=== PATIENT | male | born 1995 ===

== ENCOUNTER 2018-01-05 11:00 | Day surgery (SDC) | payer SELFPAY ==
[2018-01-05] MEDS ORDERED: Propofol 10 mg/ml Inj (20 ML) ONE (13:55)
[2018-01-05] MEDS ORDERED: Midazolam 2 MG/2 ML VIAL ONE (13:55)
[2018-01-05] MEDS ORDERED: Lidocaine Hydrochloride 5 ML INJ ONE (13:57)
[2018-01-05] MEDS ORDERED: ceFAZolin 1 gm in NS 1 GM/100 ML BAG IVPB ONE (13:58)
[2018-01-05] MEDS ORDERED: Bupivacaine HCl 0.25% PF (30 ml) Inj ONE (13:58)
[2018-01-05] MEDS ORDERED: Oxycodone/Acetaminophen 5/325 mg Tab PO PRN (14:00)
[2018-01-05] MEDS ORDERED: Lactated Ringer's 1,000 ML IV ONE (15:15)
[2018-01-05] MEDS: HYDROmorphone 0.5 mg/0.5 ml ISec IVP PRN ×3 (15:30→16:15)
[2018-01-05] MEDS ORDERED: HYDROmorphone 0.5 mg/0.5 ml ISec ONE (15:30)
[2018-01-05] MEDS ORDERED: Lactated Ringer's 1,000 ML IV SCH (15:30)
[2018-01-05 16:57] VITALS: BP 120/81; PULSE 81; RESP 18; TEMP 98; O2SAT 100
--- NOTE | 2018-01-19 08:35 | OP ---
PROCEDURE DATE: 01/05/2018 PREOPERATIVE DIAGNOSIS: Right-sided testicular mass and concern for malignancy. POSTOPERATIVE DIAGNOSIS: Right-sided testicular mass, concern for malignancy, but frozen section did not show any evidence of malignancy. PROCEDURE PERFORMED: Right inguinal exploration, delivering the testicle, right mobile frozen section of the right epididymis, and evaluation and exam under anesthesia. ESTIMATED BLOOD LOSS: Less than 25 mL. COMPLICATIONS: There are no complications. At the termination of the procedure, we replaced the testicle intact. The patient still has the mass within his epididymis. We took a frozen section and we sent this to the pathologist. Their initial response is that it is inflammatory, not malignant. Further plans will follow, see below. SPECIMENS: The specimen sent out is frozen section from the testicle. DESCRIPTION OF PROCEDURE: After obtaining informed consent and discussing various options with the patient at great length with the patient's . In brief, he is a very pleasant young gentleman. He is here on a visa, his is in school and he presented to another urologist who sent him further evaluation. We discussed the possibility of him returning to [place], but he is concerned with his status as a student visa, etc., so after discussing the options, he is here now for the above procedure. All testicular parameters are negative. As would be expected, ____ normal. The patient was brought to the OR and placed on the OR table, routine monitoring, time-out was called to confirm the patient. We discussed with the patient the plan and we did exactly what we planned to do. An incision was made in the right inguinal area. We dissected down below, off the nerve and blood vessels in this sector through the underlying fat and fascia. Now, we identified the cord, which we delivered gently with a little pressure from below in case he had some underlying malignancy. At this point, I then placed a Taylor around the cord with double . Now we delivered the testicles gently, carefully, and slowly. ____. Further examination revealed the testicles to be completely within normal limits. The epididymis itself was extremely indurated. . It was difficult at this point to identify any specific obstruction. I do not see specifically the vas deferens well at this point, but it is indurated. No appreciable . At this point, I was interested in mostly making a diagnosis and not complete removal, not wanting to disrupt blood flow to the testicle. At this point, we took multiple pictures actually interestingly. We sent off the specimens to the pathologist on different portions. After doing so, we achieved hemostasis with a mild cautery and some suture material. The patient overall tolerated the procedure without any complications. We then inspected the scrotum actually reversing the inside. We did make sure there was no bleeding of the skin . We now replaced the testicle anatomically into the scrotum and we began our closure . We closed in layers both skin and dry sterile dressing, etc. The patient tolerated the procedure well without any complications. Yogesh Bermudez MD
--- NOTE | 2018-01-19 08:57 | HP ---
REASON FOR ADMISSION: Scrotal mass. HISTORY OF PRESENT ILLNESS: The patient is a very young gentleman ____. He presents with a painless growth in his right hemiscrotum. Further examination revealed that it is paratesticular. ____ reported by MRI enhancing and concerning for cancer. The patient has been brought in today actually for an exploration through the inguinal canal. With the plans for biopsy ____, by MRI criteria that the testicles are not involved. I did have a ____ conversation at great length ____ . I explained to the patient concerns for malignancy which is less concerning ____ testicular masses. I also spoke about other possibilities with the patient. It was not just the epididymitis but there is certainly a possibility ____ PAST MEDICAL AND SURGICAL HISTORY: As above. MEDICATIONS: See chart. ALLERGIES: NONE. REVIEW OF SYSTEMS: No weight loss, chest pain, or shortness of breath. ____. He still have complaints of coughing. No weight loss or chest pain. ____. We discussed the possibility of ____. We are concerned about traveling back and forth .. In terms of exposure to injections, the patient has known of any specific issues, no known history of . FAMILY HISTORY: There is no family history of malignancy. . From a development standpoint, per the patient's knowledge, patient had no prior urologic history. . PHYSICAL EXAMINATION: GENERAL: A well-nourished female in no apparent distress. VITAL SIGNS: Within normal limits. NECK: No cervical or axillary lymphadenopathy. ABDOMEN: Soft and nontender. : ____. His left hemiscrotum is . Appears to be highly involved It is not ____ to the skin. . DIAGNOSES: Right paratesticular mass that appears to be solid on an MRI concerning for malignancy. PLAN: I had a long discussion with the patient. I discussed the easiest thing is to remove the testicle and the cord structures . However, it does not seem that the testicle is involved and the purpose of testicular function sperm production. Even if the epididymis and vas deferens are somewhat . I explained this to the patient at length. Discussed all the options with the patient. we are going to control this intraoperatively. Once we achieved some event of what is going on, we will make further decisions . I explained that most likely we will not be able to surgery. Further evaluation as planned . Yogesh Bermudez MD
--- NOTE | 2018-01-19 09:00 | PN ---
DATE: 01/16/2018 This is a note to be placed in the chart. See the history and physical and the operative note . 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 I had a lengthy discussion with the pathologist. With this kind of granulomas, again there is a long differential list such as sarcoid or just fungal granulomas. tuberculosis. At this point, I discussed this with the patient will be placed in the chart even with the negative mycobacterium stain, there is still possibility for exacerbation to . In the interim, we will work on observation with CAT scan of the abdomen and pelvis to make sure there is no kidney involvement. The general urology thinking as for looking for a trigger is that isolated tuberculosis of a epididymis has to be seeded from elsewhere. In the interim, I have ordered a PPD, which was read as positive by Dr. Robert Corey. I have a negative chest x-ray. The implication from this needs to be evaluated. Again, since he is of [place] descent, I need to get further opinion from Infectious Disease and further management in terms of other possibilities for caseating granulomatous disease. At this point, the patient is doing well, but we will need further evaluation. There is no malignancy seen. We need to make further plans on evaluation. I just wanted a thoroughness, but the documentation of the plan is for the patient to see Infectious Disease for further testing. Meanwhile, I will obtain a CT scan of the abdomen and pelvis. He has a positive PPD and negative chest x-ray. 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 Yogesh Bermudez MD
== END 2018-01-05 17:46 | disposition home or self-care (01) ==
LOC: EDBD → C.SDS 11:00
PROVIDERS: ATTEND Urology
DX: N50.9 Disorder of male genital organs, unspecified (principal)
CPT/HCPCS: 54505; 87070; 88305; 88312; 88331; J0690; J1170; J2250; J2704; J3010; J7120

== ENCOUNTER 2018-04-02 07:44 | Day surgery (SDC) | payer SELFPAY ==
[2018-04-02] MEDS ORDERED: ceFAZolin 1 gm in NS 1 GM/100 ML BAG IVPB ONE (08:07)
[2018-04-02] MEDS ORDERED: cefTRIAXone IV 1 gm in Dextros 50 ML IVPB ONE (08:07)
[2018-04-02] MEDS ORDERED: Bacitracin Ointment 30 GM TUBE ONE (08:08)
[2018-04-02] MEDS ORDERED: Midazolam 2 MG/2 ML VIAL ONE (08:46)
[2018-04-02] MEDS ORDERED: Propofol 10 mg/ml Inj (20 ML) ONE (08:47)
[2018-04-02] MEDS ORDERED: Bupivacaine 0.25% 20 ML INJ IJ ONE (11:11)
[2018-04-02] MEDS ORDERED: HYDROmorphone 0.5 mg/0.5 ml ISec IVP PRN (11:37)
[2018-04-02] MEDS ORDERED: Acetaminophen-Codeine 300/30 mg Tab PO PRN (11:48)
[2018-04-02 12:02] VITALS: O2SAT 100
[2018-04-02 13:08] VITALS: BP 140/80; PULSE 82; RESP 18; TEMP 97
--- NOTE | 2018-04-15 16:59 | OP ---
Copied To: Yogesh Bermudez MD Attending MD: Yogesh Bermudez MD PROCEDURE DATE: 04/02/2018 PREOPERATIVE DIAGNOSES: Right testicular and epididymal mass. POSTOPERATIVE DIAGNOSES: Right testicular and epididymal mass. PROCEDURES: 1. Scrotal exploration, excision of biopsy of the tissue and cultures and specimen sent. 2. Revision of the abdominal wound scar and there were no complication. ESTIMATED BLOOD LOSS: Less than 10 mL. FINDINGS: 1. In terms of the abdominal groin incision, the medial edge is not healing well. 2. I cut open the edges. DESCRIPTION OF PROCEDURE: We have prepped the patient in sterile fashion and we decided to revive the edges and reapproximate them with fresh tissue. Regarding the scrotum, again the testicle is significantly abnormal. I found within the hemiscrotum, no other major abnormality at all. I do not really see much normal testicle tissue. Today I just biopsied. I sent cultures, we will evaluate report further, but my real suggestion after seeing this today is to remove it. I will be concerned that even if this correct diagnosis is tuberculosis that healing may be difficult through the multiple pictures. See my addendum at the end of this note, but my previous recommendations for the patient to consider complete orchiectomy. Today we have approached to the scrotum because we ensure it is not cancer, but I am concerned that the testicle is not going to heal well. He does have a normal left hemiscrotum and I am not going to remove it without permission, but my other recommendation despite the expense to consider very strongly sperm banking at least temporarily and then make further decision. DESCRIPTION OF PROCEDURE: After obtaining informed consent, the patient was placed on the table. Routine monitors were placed. Time-out was called to confirm the patient and positioning. We have explained to the patient the outline. So, incision was made in the right hemiscrotum. We delivered the testicle. We noted tremendous amount of abnormal tissue and in fact there is little normal tissue. Very difficult to distinguish the entire epididymis, but it is able to be and mostly focus on the mass like effect. We biopsied. We then cultured. Again prior to today, I have spoken to the labs to make arrangements, prior today we made arrangements. We had sent the culture for fungus, for tuberculosis in sterile containers with nothing and also to send the pathology to the lab, which we also did for tissues. So, we sent off many multiple specimens, which are labeled very carefully. At this point, we irrigated copiously because again it does look like abnormal whitish tissue. Multiple tissues were taken. The testicles looks mostly replaced. From previous dimension, I had done some reviews prior to today and over the last couple of months regarding TB of the testicle. Overall, at this point we closed the incision without difficulty. We again left the testicle in place intact. When I inspected the wound from the groin area, I noticed that the medial edge is not healing well. Though at this point, we decided to revise the wound. Once the patient got anesthesia, we tried to revive the wound. We excised the medial edge of the skin and sent it for pathology. We mostly to create fresh bleeding on the incision site and then we closed it using natural sutures with also superficial skin layer. We used mattress sutures with nylon. Overall, the patient tolerated this procedure well without complication. I do want to mention we provided lidocaine and Marcaine for both the groin and the skin. The patient was brought to the recovery room in stable condition and tolerated the procedure well without complications. Yogesh Bermudez MD
--- NOTE | 2018-04-15 18:33 | HP ---
Copied To: Yogesh Bermudez MD Attending MD: Yogesh Bermudez MD UROLOGY ADMISSION HISTORY AND PHYSICAL REASON FOR ADMISSION: For further diagnostic study for his potential tuberculosis. HISTORY OF PRESENT ILLNESS: Mr. Turner is a very pleasant gentleman. See the many previous notes, seen for above and he was seen in my office. He initially presented to me. He actually was referred from another urologist for a testicular mass. At that time, there was a question of cancer for the testicle. We did various diagnostic studies. We were able to do as much studies as we were able to do preoperatively, all the imaging, etc. Subsequently, we brought the patient to the OR. His concern is very much to preserve his testicle as best as possible. We have discussed initially just an orchiectomy. We had approached it as a possibility for cancer, and we approached it as a radical orchiectomy. What we really planned originally through the notes was an exploration and biopsy. Subsequently, the biopsies came back with caseating granulomas, see all those previous pathologies, and the question of whether this was sarcoid tuberculosis, this may be spontaneous. We have had multiple discussions. We have sent the patient for Infectious Disease consultation. At this point, the patient is now being brought in, so he is in, he is positive with his PPD, but his chest x-ray is negative. His blood test is pending. The issue is whether or not to keep subjecting this young gentleman to six months of antituberculosis medications versus the other possibility for treatment of other medical conditions. His background was suspicious for tuberculosis, but with a negative chest x-ray, we are in the middle of testing further. So today he is here for further testing. At this point, prior to today, I have discussed with the Microbiology Department as what else we can run testing like to confirm tuberculosis, antifungal, etc., and we are also sending more pathology tissue. So he is here today for further exploration. Today, we are going to go through the scrotum. Since we have essentially ruled out any malignancy, there is no pathology suggesting malignancy. There is no blood testing suggesting malignancy, and therefore, we are going to approach it through the scrotum. I have explained this all in great detail to the patient and his with multiple office visits. PAST MEDICAL HISTORY AND PAST SURGICAL HISTORY: As listed above. SOCIAL HISTORY: Essentially unremarkable. As mentioned he is from [place] His is also a student. REVIEW OF SYSTEMS: No weight loss, chest pain, or shortness of breath. He actually feels much better than we initially started. MEDICATIONS: See chart. ALLERGIES: NONE. Review of systems as listed above and noncontributory. PHYSICAL EXAMINATION: GENERAL: A well-nourished male, in no apparent distress. VITAL SIGNS: Within normal limits included in the chart. LUNGS: Clear. HEART: Normal S1, S2. ABDOMEN: Soft. EXTREMITIES: No axillary or cervical adenopathy. It turned out the inner corner of the incision is not healing well. See below. The left hemiscrotum is all within normal limits. The right hemiscrotum is significantly abnormal. It is firm. No loculations are noted. It is just significantly abnormal. It is hard to distinguish between the epididymis and the testicle itself. DIAGNOSES: 1. 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 2. Generalized tuberculosis of the body. 3. Possibilities for sarcoid. 4. Even fungal infection existing. IN SUMMARY: This is a very pleasant gentleman with the above history. Today's plan is to get as much tissue diagnosis also to send new cultures. However, most likely anyway he will be started on anti-TB meds that is being decided by Infectious Disease and also by the state. The patient is a [place], so we have to obtain these medications from the state. This has all been worked out, but we are going to bring him in today for further decision . Risks and benefits were discussed at length. I did discuss with them the possibilities, and my recommendation at this point is to consider just doing an orchiectomy and removing all the tissue, severely damaged testicle no matter what, and I also recommended very strongly to consider sperm banking, I know it is an extreme expense that may not be covered, but I certainly would consider it strongly. I have discussed all these options as well today for the OR and then obtaining more tissue. We will use the antibiotic prophylaxis. During the procedure itself when I inspected the wounds under more careful vision, the groin and the abdominal wound, I decided to operating report. Further plans will follow. Yogesh Bermudez MD [facility] # [id number]
== END 2018-04-02 14:21 | disposition home or self-care (01) ==
LOC: EDBD → C.SDS 07:44
PROVIDERS: ATTEND Urology
DX: N50.9 Disorder of male genital organs, unspecified (principal); A58 Granuloma inguinale; A18.4 Tuberculosis of skin and subcutaneous tissue
CPT/HCPCS: 54505; 87015; 87070; 87101; 87116; 87206; 88305; 88312; J0690; J1100; J2001; J2250; J2405; J2704; J3010; J7120

== ENCOUNTER 2018-04-07 20:14 | Inpatient (IN) | payer SELFPAY ==
--- NOTE | 2018-04-07 21:01 | C.PDOC ---
History Of Present Illness 23 year old male presents to the ED c/o fever and chills. Patient recently had suprapubic and scrotal biopsy to rule out TB because of granuloma formation. Patient denies nausea, vomit, diarrhea, dysuria, hematuria, penile discharge, weakness, numbness. Time Seen by Provider: 04/07/18 21:01 Chief Complaint (Nursing): Fever History Per: Patient History/Exam Limitations: no limitations Onset/Duration Of Symptoms: Days Current Symptoms Are (Timing): Still Present Associated Symptoms: Fever, Chills. denies: Vomiting Recent travel outside of the [place]: No Additional History Per: Patient Past Medical History Reviewed: Historical Data, Nursing Documentation, Vital Signs Vital Signs: Last Vital Signs Temp 98.8 F 04/07/18 20:47 Pulse 116 H 04/07/18 21:54 Resp 20 04/07/18 21:54 BP 128/82 04/07/18 21:54 Pulse Ox 100 04/07/18 22:55 - Medical History PMH: No Chronic Diseases Denies: Chronic Kidney Disease Surgical History: No Surg Hx Family History: States: Unknown Family Hx - Social History Hx Alcohol Use: Yes Hx Substance Use: No - Immunization History Hx Tetanus Toxoid Vaccination: No Hx Influenza Vaccination: No Hx Pneumococcal Vaccination: No Review Of Systems Constitutional: Negative for: Fever, Chills Cardiovascular: Negative for: Chest Pain, Palpitations Respiratory: Negative for: Cough, Shortness of Breath Gastrointestinal: Negative for: Nausea, Vomiting, Abdominal Pain Skin: Positive for: Other (abdominal and scrotal incision) Neurological: Negative for: Weakness, Numbness Physical Exam - Physical Exam Appears: Non-toxic, No Acute Distress Skin: Warm, Dry Head: Normacephalic Eye(s): bilateral: Normal Inspection Oral Mucosa: Moist Neck: Supple Chest: Symmetrical Cardiovascular: Rhythm Regular Respiratory: No Rales, No Rhonchi, No Wheezing Gastrointestinal/Abdominal: Soft, No Tenderness, No Guarding, No Rebound, Other (suprapubic incision with stitches with erythema, mild tenderness, drainage) Back: Normal Inspection Male Genital: Scrotal Swelling, Other (scroatl incision c&d, no exudates) Extremity: No Tenderness, No Swelling Extremity: Bilateral: Atraumatic, Normal Color And Temperature, Normal ROM Neurological/Psych: Oriented x3, Normal Speech Gait: Steady ED Course And Treatment - Laboratory Results Result Diagrams: 04/07/18 21:14 04/07/18 21:51 O2 Sat by Pulse Oximetry: 100 (ON RA) Pulse Ox Interpretation: Normal Progress Note: Plan: - VBG. - CT abd/pelvis. - Vancomycin IVPB. - Zosyn IVPB. - Blood culture. - UA. Spoke with dr Aidan Johnson, will come and see the pt in the ed. 11:[address] ibrahim(ID) ok with vanco and zosyn until cultues are back with sensitivities Disposition Discussed With Dr.: Abilio Mena Comment: accepted the pt on his service and took over the care at 10:51 PM Doctor Will See Patient In The: ED Counseled Patient/Family Regarding: Studies Performed, Diagnosis - Disposition Disposition: HOSPITALIZED Disposition Time: 21:01 Condition: FAIR - POA Present On Arrival: Surgical Site Infection - Clinical Impression Clinical Impression: Abdominal wall cellulitis, Abdominal pain - Scribe Statement The provider has reviewed the documentation as recorded by the Scribe Russel Cruz All medical record entries made by the Scribe were at my direction and personally dictated by me. I have reviewed the chart and agree that the record accurately reflects my personal performance of the history, physical exam, medical decision making, and the department course for this patient. I have also personally directed, reviewed, and agree with the discharge instructions and disposition. Decision To Admit - Pt Status Changed To: Hospital Disposition Of: Inpatient - Admit Certification Admit to Inpatient:: After my assessment, the patient will require hospitalization for at least two midnights. This is because of the severity of symptoms shown, intensity of services needed, and/or the medical risk in this patient being treated as an outpatient. - InPatient: Physician Admission Certification:: After my assessment, the patient will require hospitalization for at least two midnights. This is because of the severity of symptoms shown, intensity of services needed, and/or the medical risk in this patient being treated as an outpatient. - . Bed Request Type: Regular Admitting Physician: Abilio Mena Patient Diagnosis: Abdominal wall cellulitis, Abdominal pain
[2018-04-07] MEDS ORDERED: Piperacillin/Tazobact 3.375 gm 100 ML IVPB STA (21:11)
[2018-04-07] MEDS ORDERED: Vancomycin 1 GM 1 GM/250 ML BAG IVPB SCH (21:15)
[2018-04-07 21:16] LABS: VENOUS BLOOD GAS PCO2 53 mmHg (40-60); VENOUS BLOOD GAS PO2 26 mm/Hg (30-55); VENOUS BLOOD PH 7.33 (7.32-7.43)
[2018-04-07 21:23] LABS: BASO % 0.3 % (0.0-2.0); EOS # 0.2 K/uL (0.0-0.7); EOS % 1.8 % (0.0-4.0); HEMOGLOBIN 15.4 g/dL (12.0-18.0); LYMPH # 1.4 K/uL (1.0-4.3); LYMPH % 10.9 % (20.0-40.0); MEAN CORPUSCULAR HEMOGLOBIN 29.5 pg (27.0-31.0); MEAN CORPUSCULAR HGB CONC 33.9 g/dL (33.0-37.0); MEAN PLATELET VOLUME 7.1 fL (7.2-11.7); MONO % 7.4 % (0.0-10.0); NEUT # 10.4 K/uL (1.8-7.0); NEUT % 79.6 % (50.0-75.0); NRBC % 0.3 % (0.0-2.0); RBC 5.22 Mil/uL (4.40-5.90); RED CELL DISTRIBUTION WIDTH 12.3 % (11.5-14.5)
[2018-04-07 21:24] LABS: WHITE BLOOD COUNT 13.1 K/uL (4.8-10.8)
[2018-04-07] MEDS ORDERED: Piperacillin/Tazobact 3.375 gm 100 ML IVPB ONE (21:24)
[2018-04-07 21:32] LABS: URINE BILIRUBIN NEGATIVE (NEGATIVE); URINE BLOOD NEGATIVE (NEGATIVE); URINE CLARITY Clear (Clear); URINE COLOR Yellow (YELLOW); URINE GLUCOSE (UA) NORMAL (Normal); URINE LEUKOCYTE ESTERASE NEG Leu/uL (Negative); URINE PROTEIN NEGATIVE (NEGATIVE); URINE UROBILINOGEN NORMAL mg/dL (0.2-1.0)
[2018-04-07] MEDS ORDERED: Vancomycin 1 gm/NS 200 ml 1 GM/200 ML BAG IVPB ONE (22:00)
[2018-04-07 22:05] LABS: ALB/GLOB RATIO 1.3 (1.0-2.1); ALBUMIN 4.7 g/dL (3.5-5.0); ALT/SGPT 66 U/L (21-72); AST/SGOT 37 U/L (17-59); BLOOD UREA NITROGEN 5 mg/dL (9-20); CALCIUM 9.6 mg/dl (8.6-10.4); GFR AFRICAN-AMERICAN > 60; GFR NON-AFRICAN AMERICAN > 60
--- NOTE | 2018-04-08 00:18 | CP.PCM.HP ---
Addendum entered and electronically signed by Gómez Robert 04/08/18 00:45: Pertinent ROS to HPI: Patient denies night sweats, cough, hemoptysis nausea, vomiting, chest pain, palpitations, SOB, unintentional weight loss, change in appetite, penile discharge, urinary symptoms and hematuria. Original Note: <Gómez Robert - Last Filed: 04/08/18 00:34> History of Present Illness - History of Present Illness History of Present Illness: CC: Suprapubic drainage HPI: Patient is a 23 year old male with history of childhood asthma and right sided scrotal mass noted December 2017, who presents to the ED with complaint for noted suprapubic pus (cloudy white brownish) drainage this morning; s/p scrotal biopsy (04/02/18). Patient reported associated symptoms of subjective fever and mild chills. Patient states that he has been keeping his incision clean and dry as instructed as well as taking the antibiotics given to upon discharge on . Patient had his first scrotal biopsy on 01/05/18 with pathology result of paratesticular biopsy positive for necrotizing granulomas. Subsequently, patient was referred to ID, Dr. Fuentes for tuberculosis work-up; patient was placed on RIPE therapy for 30 days. As per patient, TB work-up has been negative up-to-date. In addition, patient had his second scrotal biopsy on 04/02, with pathology result negative acid fast mycobacteria and noted for scattered non-necrotizing granulomas. Code status: Full code Urology: Dr. Lupillo Bermudez ID: Dr. Fuentes PMHx:Childhood asthma and right sided scrotal mass PSHx: Right scrotal biopsy on 01/05/18 and 04/02/18 FHx: Denies Medications: Current prescription of cipro 500mg PO BID Allergies: NKDA Social Hx: Lives with , unemployed. Moved to the [facility] from [place] 3 years ago. Admits to 6 years of tobacco use (2-3 cigarettes per day), once per week ETOH use and denies any illicit drug use Present on Admission - Present on Admission Any Indicators Present on Admission: No Review of Systems - Constitutional Constitutional: Chills, Fever, Headache - EENT Eyes: absent: Blurred Vision, Change in Vision Ears: absent: Dizziness Nose/Mouth/Throat: absent: Nasal Congestion, Nasal Discharge - Cardiovascular Cardiovascular: absent: Chest Pain, Chest Pain at Rest, Diaphoresis, Dyspnea, Lightheadedness, Palpitations, Pedal Edema, Radiating Pain - Respiratory Respiratory: absent: Dyspnea - Gastrointestinal Gastrointestinal: absent: Abdominal Pain, Change in Bowel Habits, Constipation, Diarrhea, Nausea, Vomiting - Genitourinary Genitourinary: Hx /Renal Surgery. absent: Dysuria, Flank Pain, Hematuria, Pyuria, Urinary Frequency - Musculoskeletal Musculoskeletal: absent: Muscle Weakness, Myalgias, Numbness, Tingling - Integumentary Integumentary: absent: Rash - Endocrine Endocrine: absent: Fatigue, Palpitations Past Patient History - Past Medical History & Family History Past Medical History?: Yes - Past Social History Smoking Status: Light Smoker < 10 Cigarettes Daily - CARDIAC Hx Cardiac Disorders: No - PULMONARY Hx Respiratory Disorders: No - NEUROLOGICAL Hx Neurological Disorder: No - HEENT Hx HEENT Problems: No - RENAL Hx Chronic Kidney Disease: No - ENDOCRINE/METABOLIC Hx Endocrine Disorders: No - HEMATOLOGICAL/ONCOLOGICAL Hx Blood Disorders: No - INTEGUMENTARY Hx Dermatological Problems: No - MUSCULOSKELETAL/RHEUMATOLOGICAL Hx Musculoskeletal Disorders: No - GASTROINTESTINAL Hx Gastrointestinal Disorders: No - GENITOURINARY/GYNECOLOGICAL Hx Genitourinary Disorders: Yes Other/Comment: scrotal mass - PSYCHIATRIC Hx Substance Use: No - SURGICAL HISTORY Hx Surgeries: No - ANESTHESIA Hx Anesthesia: No Meds Allergies/Adverse Reactions: Allergies Allergy/AdvReac Type Severity Reaction Status Date / Time No Known Allergies Allergy Verified 04/07/18 20:52 Physical Exam - Constitutional Appears: No Acute Distress - Head Exam Head Exam: ATRAUMATIC, NORMAL INSPECTION - Eye Exam Eye Exam: EOMI, Normal appearance - ENT Exam ENT Exam: Mucous Membranes Dry - Respiratory Exam Respiratory Exam: Clear to Auscultation Bilateral, NORMAL BREATHING PATTERN. absent: Prolonged Expiratory Phase, Rhonchi, Wheezes, Respiratory Distress - Cardiovascular Exam Cardiovascular Exam: REGULAR RHYTHM, +S1, +S2. absent: Tachycardia, Diastolic murmur, Systolic Murmur - GI/Abdominal Exam GI & Abdominal Exam: Normal Bowel Sounds, Soft. absent: Diminished Bowel Sounds , Distended, Firm, Hyperactive Bowel Sounds, Tenderness Additional comments: Lower transverse ( suprapubic) incision, irrigated at bedside by Dr. Bermudez Dressing in clean and dry with iodine Incision is intact with very mild drainage, post bedside irrigation - Exam Additional comments: Right scrotal mass Dressing is clean and dry with iodine - Extremities Exam Extremities exam: Positive for: normal capillary refill, normal inspection, pedal pulses present. Negative for: calf tenderness, pedal edema, tenderness - Back Exam Back exam: absent: CVA tenderness (L), CVA tenderness (R) - Neurological Exam Neurological exam: Alert, CN II-XII Intact, Oriented x3 - Psychiatric Exam Psychiatric exam: Normal Affect - Skin Skin Exam: Normal Color Results - Vital Signs Recent Vital Signs: Last Vital Signs Temp 98.8 F 04/07/18 20:47 Pulse 116 H 04/07/18 21:54 Resp 20 04/07/18 21:54 BP 128/82 04/07/18 21:54 Pulse Ox 100 04/07/18 23:43 - Labs Result Diagrams: 04/07/18 21:14 04/07/18 21:51 Labs: Laboratory Results - last 24 hr 04/07/18 04/07/18 04/07/18 21:10 21:14 21:20 WBC 13.1 H D RBC 5.22 Hgb 15.4 Hct 45.4 MCV 87.0 MCH 29.5 MCHC 33.9 RDW 12.3 Plt Count 344 MPV 7.1 L Neut % (Auto) 79.6 H Lymph % (Auto) 10.9 L [place] % (Auto) 7.4 Eos % (Auto) 1.8 Baso % (Auto) 0.3 Neut # (Auto) 10.4 H Lymph # (Auto) 1.4 [place] # (Auto) 1.0 H Eos # (Auto) 0.2 Baso # (Auto) 0.0 pO2 26 L VBG pH 7.33 VBG pCO2 53 VBG HCO3 24.2 VBG Total CO2 29.5 H VBG O2 Sat (Calc) 54.7 VBG Base Excess 1.0 VBG Potassium 4.0 Sodium 139.0 Chloride 102.0 Glucose 88 Lactate 1.5 FiO2 21.0 Potassium Carbon Dioxide Anion Gap BUN Creatinine Est GFR ( Amer) Est GFR (Non-Af Amer) Random Glucose Calcium Total Bilirubin AST ALT Alkaline Phosphatase Total Protein Albumin Globulin Albumin/Globulin Ratio Venous Blood Potassium 4.0 Urine Color Yellow Urine Clarity Clear Urine pH 5.0 Ur Specific [place] 1.010 Urine Protein Negative Urine Glucose (UA) Normal Urine Ketones Negative Urine Blood Negative Urine Nitrate Negative Urine Bilirubin Negative Urine Urobilinogen Normal Ur Leukocyte Esterase Neg Urine WBC (Auto) < 1 Urine RBC (Auto) < 1 04/07/18 21:51 WBC RBC Hgb Hct MCV MCH MCHC RDW Plt Count MPV Neut % (Auto) Lymph % (Auto) [place] % (Auto) Eos % (Auto) Baso % (Auto) Neut # (Auto) Lymph # (Auto) [place] # (Auto) Eos # (Auto) Baso # (Auto) pO2 VBG pH VBG pCO2 VBG HCO3 VBG Total CO2 VBG O2 Sat (Calc) VBG Base Excess VBG Potassium Sodium 143 Chloride 100 Glucose Lactate FiO2 Potassium 4.3 Carbon Dioxide 28 Anion Gap 18 BUN 5 L Creatinine 0.6 L Est GFR ( Amer) > 60 Est GFR (Non-Af Amer) > 60 Random Glucose 98 Calcium 9.6 Total Bilirubin 0.6 AST 37 ALT 66 Alkaline Phosphatase 69 Total Protein 8.2 Albumin 4.7 Globulin 3.5 Albumin/Globulin Ratio 1.3 Venous Blood Potassium Urine Color Urine Clarity Urine pH Ur Specific [place] Urine Protein Urine Glucose (UA) Urine Ketones Urine Blood Urine Nitrate Urine Bilirubin Urine Urobilinogen Ur Leukocyte Esterase Urine WBC (Auto) Urine RBC (Auto) Assessment & Plan (1) Abdominal wall cellulitis Assessment and Plan: On admission: * Afebrile * WBC: 13.1 * ESR: WNL Consultation: * SANDRA, Dr. Fuentes Medication given in the ED and management: * Vanco 1gm IV once * Zosyn 3.375gm IV once * Will continue Vancomycin 1gm daily and Zosyn 3.375gm IV Q6H * Bedside irrigation by Dr. Lupillo Bermudez - F/u wound culture and blood culture Status: Acute (2) Mass of scrotum Assessment and Plan: Consultation: * Urology, Dr. Lupillo Bermudez -Management as per recommendation 1. First scrotal biopsy on 01/05/18 with pathology result of paratesticular bx noted for necrotizing granulomas 2. Second scrotal biopsy on 04/02/18, with pathology result noted for negative acid fast mycobacteria and scattered non-necrotizing granulomas. Status: Acute (3) Prophylactic measure Assessment and Plan: GI: Not indicated DVT: Scds Plans and management discussed with Dr. Mena Status: Acute <Abilio Mena - Last Filed: 04/08/18 06:19> Results - Vital Signs Recent Vital Signs: Last Vital Signs Temp 98.7 F 04/08/18 01:01 Pulse 100 H 04/08/18 01:01 Resp 20 04/08/18 01:01 BP 128/73 04/08/18 01:01 Pulse Ox 98 04/08/18 01:01 - Labs Result Diagrams: 04/07/18 21:14 04/07/18 21:51 Labs: Laboratory Results - last 24 hr 04/07/18 04/07/18 04/07/18 21:10 21:14 21:20 WBC 13.1 H D RBC 5.22 Hgb 15.4 Hct 45.4 MCV 87.0 MCH 29.5 MCHC 33.9 RDW 12.3 Plt Count 344 MPV 7.1 L Neut % (Auto) 79.6 H Lymph % (Auto) 10.9 L [place] % (Auto) 7.4 Eos % (Auto) 1.8 Baso % (Auto) 0.3 Neut # (Auto) 10.4 H Lymph # (Auto) 1.4 [place] # (Auto) 1.0 H Eos # (Auto) 0.2 Baso # (Auto) 0.0 pO2 26 L VBG pH 7.33 VBG pCO2 53 VBG HCO3 24.2 VBG Total CO2 29.5 H VBG O2 Sat (Calc) 54.7 VBG Base Excess 1.0 VBG Potassium 4.0 Sodium 139.0 Chloride 102.0 Glucose 88 Lactate 1.5 FiO2 21.0 Potassium Carbon Dioxide Anion Gap BUN Creatinine Est GFR ( Amer) Est GFR (Non-Af Amer) Random Glucose Calcium Total Bilirubin AST ALT Alkaline Phosphatase Total Protein Albumin Globulin Albumin/Globulin Ratio Venous Blood Potassium 4.0 Urine Color Yellow Urine Clarity Clear Urine pH 5.0 Ur Specific [place] 1.010 Urine Protein Negative Urine Glucose (UA) Normal Urine Ketones Negative Urine Blood Negative Urine Nitrate Negative Urine Bilirubin Negative Urine Urobilinogen Normal Ur Leukocyte Esterase Neg Urine WBC (Auto) < 1 Urine RBC (Auto) < 1 04/07/18 21:51 WBC RBC Hgb Hct MCV MCH MCHC RDW Plt Count MPV Neut % (Auto) Lymph % (Auto) [place] % (Auto) Eos % (Auto) Baso % (Auto) Neut # (Auto) Lymph # (Auto) [place] # (Auto) Eos # (Auto) Baso # (Auto) pO2 VBG pH VBG pCO2 VBG HCO3 VBG Total CO2 VBG O2 Sat (Calc) VBG Base Excess VBG Potassium Sodium 143 Chloride 100 Glucose Lactate FiO2 Potassium 4.3 Carbon Dioxide 28 Anion Gap 18 BUN 5 L Creatinine 0.6 L Est GFR ( Amer) > 60 Est GFR (Non-Af Amer) > 60 Random Glucose 98 Calcium 9.6 Total Bilirubin 0.6 AST 37 ALT 66 Alkaline Phosphatase 69 Total Protein 8.2 Albumin 4.7 Globulin 3.5 Albumin/Globulin Ratio 1.3 Venous Blood Potassium Urine Color Urine Clarity Urine pH Ur Specific [place] Urine Protein Urine Glucose (UA) Urine Ketones Urine Blood Urine Nitrate Urine Bilirubin Urine Urobilinogen Ur Leukocyte Esterase Urine WBC (Auto) Urine RBC (Auto) Assessment & Plan - Date & Time Date: 04/08/18 (I have seen and examined the patient. I agree with the findings and plan of care as documented by Dr. Robert. Patient with cellulitis and scrotal mass. Consult to Dr Bermudez and Dr. Fuentes. Kathrin and Theo for now. Monitor for acute changes.) Time: 06:18 Attending/Attestation - Attestation I have personally seen and examined this patient.: Yes I have fully participated in the care of the patient.: Yes I have reviewed all pertinent clinical information: Yes
[2018-04-08 01:01] VITALS: RESP 20
[2018-04-08] MEDS: Sodium Chloride 0.9% 1,000 ML IV SCH ×4 (01:06→22:05)
[2018-04-08] MEDS: Piperacill/Tazo 3.375gm in Dex 3.375 GM/50 ML BAG IVPB SCH ×4 (03:04→22:01)
--- NOTE | 2018-04-08 07:17 | CP.PCM.PN ---
Subjective - Date & Time of Evaluation Date of Evaluation: 04/08/18 Time of Evaluation: 08:10 - Subjective Subjective: Pt seen and examined at bedside. No complaints. Denies fevers, chest pain, SOB , abd pain, nausea, incision site pain. Objective - Vital Signs/Intake and Output Vital Signs (last 24 hours): Temp Pulse Resp BP Pulse Ox 98.7 F 100 H 20 128/73 98 04/08/18 01:01 04/08/18 01:01 04/08/18 01:01 04/08/18 01:01 04/08/18 01:01 Intake and Output: 04/08/18 04/08/18 06:59 18:59 Intake Total 940 Balance 940 - Medications Medications: Current Medications Piperacillin Sod/Tazobactam Sod (Zosyn 3.375 Gm Iv Premix) 3.375 gm in 50 mls @ 100 mls/hr IVPB Q6H NATALIIA PRN Reason: Protocol Last Admin: 04/08/18 03:04 Dose: 100 mls/hr Vancomycin/Sodium Chloride (Vancomycin 1 Gm/Ns 200 Ml) 1 gm in 200 mls @ 133.333 mls/hr IVPB Q24H NAATLIIA PRN Reason: Protocol Stop: 04/13/18 10:01 Sodium Chloride (Sodium Chloride 0.9%) 1,000 mls @ 100 mls/hr IV .Q10H [facility] Last Admin: 04/08/18 01:06 Dose: 100 mls/hr Pneumococcal Polyvalent Vaccine (Pneumovax 23 Vaccine) 0.5 ml IM .ONCE ONE Stop: 04/10/18 10:01 Saccharomyces Boulardii (Florastor) 250 mg PO BID NATALIIA - Labs Labs: 04/07/18 21:14 04/07/18 21:51 - Constitutional Appears: Well, Non-toxic - Head Exam Head Exam: ATRAUMATIC, NORMAL INSPECTION, NORMOCEPHALIC - Eye Exam Eye Exam: EOMI Pupil Exam: PERRL - ENT Exam ENT Exam: Mucous Membranes Moist - Respiratory Exam Respiratory Exam: Clear to Ausculation Bilateral, NORMAL BREATHING PATTERN - Cardiovascular Exam Cardiovascular Exam: REGULAR RHYTHM. absent: Murmur - GI/Abdominal Exam GI & Abdominal Exam: Soft, Normal Bowel Sounds. absent: Distended, Rigid, Mass Additional comments: Suprapubic incision site noted, approx 10cm in diameter. Non erythematous w/ no drainage seen. Packed w/ gauze Assessment and Plan - Assessment and Plan (Free Text) Assessment: 23 yo M admitted for purulent drainange/cellulitis from suprapubic bx incision ( 01/06/18)of testicular necrotizing granulomas 2/2 suspected TB infection. Pt Quantiferon +. Pt s/p I&D of incision site. 1. Cellulitis at incision site -zosyn 3.375 q6(04/07) -vanco 1g QD(04/07) -Florastar 250mg PO BID -f/u abd wound cx -wound care nursing to change dressings -Urology consult Dr. Heladio Bermudez. Performed bx (04/02), I&D(04/07). -ID consult Dr. Fuentes 2. 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 Fuentes -awaiting bx results for acid fast bacilli, bx (04/02) -ID consult Dr. Fuentes 3. Ppx -OOB -SCDs -GI ppx not indicated Dispo: -awaiting abd wound culture -continue IV Abx -pt advised to begin RIPE therapy -d/c home pending cx results Yaneth Ramirez PGY1
[2018-04-08 08:30] LABS: BASO % 0.4 % (0.0-2.0); EOS # 0.2 K/uL (0.0-0.7); EOS % 2.2 % (0.0-4.0); HEMOGLOBIN 15.3 g/dL (12.0-18.0); LYMPH # 1.5 K/uL (1.0-4.3); LYMPH % 15.9 % (20.0-40.0); MEAN CELL VOLUME 87.5 fL (80.0-94.0); MEAN CORPUSCULAR HEMOGLOBIN 30.9 pg (27.0-31.0); MEAN CORPUSCULAR HGB CONC 35.3 g/dL (33.0-37.0); MEAN PLATELET VOLUME 7.2 fL (7.2-11.7); MONO # 0.9 K/uL (0.0-0.8); MONO % 9.3 % (0.0-10.0); NEUT # 6.9 K/uL (1.8-7.0); NEUT % 72.2 % (50.0-75.0); NRBC % 0.1 % (0.0-2.0); RBC 4.95 Mil/uL (4.40-5.90); RED CELL DISTRIBUTION WIDTH 12.1 % (11.5-14.5); WHITE BLOOD COUNT 9.6 K/uL (4.8-10.8)
[2018-04-08 09:03] LABS: ALB/GLOB RATIO 1.6 (1.0-2.1); ALBUMIN 4.7 g/dL (3.5-5.0); ALT/SGPT 63 U/L (21-72); AST/SGOT 42 U/L (17-59); BLOOD UREA NITROGEN 6 mg/dL (9-20); CALCIUM 9.6 mg/dl (8.6-10.4); GFR AFRICAN-AMERICAN > 60; GFR NON-AFRICAN AMERICAN > 60
[2018-04-08] MEDS: Saccharomyces Boulardi 250 mg Cap PO SCH ×2 (09:49→17:01)
[2018-04-08] MEDS: Vancomycin 1 gm/NS 200 ml 1 GM/200 ML BAG IVPB SCH (10:36)
--- NOTE | 2018-04-08 14:38 | PCM.URO ---
Urology Progress Note - General General: Tolerating Diet - Subjective Flank Pain: No Nausea: No Vomiting: No Voiding Well: Yes Dysuria: No Hematuria: No [place]: Yes Dsypnea: No Chest Pain: No Fever & Chills: No - Objective Lab Results Last 24 Hours: Laboratory Results - last 24 hr 04/07/18 04/07/18 04/07/18 21:10 21:14 21:20 WBC 13.1 H D RBC 5.22 Hgb 15.4 Hct 45.4 MCV 87.0 MCH 29.5 MCHC 33.9 RDW 12.3 Plt Count 344 MPV 7.1 L Neut % (Auto) 79.6 H Lymph % (Auto) 10.9 L [place] % (Auto) 7.4 Eos % (Auto) 1.8 Baso % (Auto) 0.3 Neut # (Auto) 10.4 H Lymph # (Auto) 1.4 [place] # (Auto) 1.0 H Eos # (Auto) 0.2 Baso # (Auto) 0.0 pO2 26 L VBG pH 7.33 VBG pCO2 53 VBG HCO3 24.2 VBG Total CO2 29.5 H VBG O2 Sat (Calc) 54.7 VBG Base Excess 1.0 VBG Potassium 4.0 Sodium 139.0 Chloride 102.0 Glucose 88 Lactate 1.5 FiO2 21.0 Potassium Carbon Dioxide Anion Gap BUN Creatinine Est GFR ( Amer) Est GFR (Non-Af Amer) Random Glucose Calcium Phosphorus Magnesium Total Bilirubin AST ALT Alkaline Phosphatase Total Protein Albumin Globulin Albumin/Globulin Ratio Venous Blood Potassium 4.0 Urine Color Yellow Urine Clarity Clear Urine pH 5.0 Ur Specific [place] 1.010 Urine Protein Negative Urine Glucose (UA) Normal Urine Ketones Negative Urine Blood Negative Urine Nitrate Negative Urine Bilirubin Negative Urine Urobilinogen Normal Ur Leukocyte Esterase Neg Urine WBC (Auto) < 1 Urine RBC (Auto) < 1 04/07/18 04/08/18 04/08/18 21:51 08:19 08:19 WBC 9.6 RBC 4.95 Hgb 15.3 Hct 43.3 MCV 87.5 MCH 30.9 MCHC 35.3 RDW 12.1 Plt Count 315 MPV 7.2 Neut % (Auto) 72.2 Lymph % (Auto) 15.9 L [place] % (Auto) 9.3 Eos % (Auto) 2.2 Baso % (Auto) 0.4 Neut # (Auto) 6.9 Lymph # (Auto) 1.5 [place] # (Auto) 0.9 H Eos # (Auto) 0.2 Baso # (Auto) 0.0 pO2 VBG pH VBG pCO2 VBG HCO3 VBG Total CO2 VBG O2 Sat (Calc) VBG Base Excess VBG Potassium Sodium 143 140 Chloride 100 102 Glucose Lactate FiO2 Potassium 4.3 4.0 Carbon Dioxide 28 22 Anion Gap 18 21 H BUN 5 L 6 L Creatinine 0.6 L 0.5 L Est GFR ( Amer) > 60 > 60 Est GFR (Non-Af Amer) > 60 > 60 Random Glucose 98 102 Calcium 9.6 9.6 Phosphorus 4.7 H Magnesium 1.9 Total Bilirubin 0.6 0.9 AST 37 42 ALT 66 63 Alkaline Phosphatase 69 71 Total Protein 8.2 7.7 Albumin 4.7 4.7 Globulin 3.5 3.0 Albumin/Globulin Ratio 1.3 1.6 Venous Blood Potassium Urine Color Urine Clarity Urine pH Ur Specific [place] Urine Protein Urine Glucose (UA) Urine Ketones Urine Blood Urine Nitrate Urine Bilirubin Urine Urobilinogen Ur Leukocyte Esterase Urine WBC (Auto) Urine RBC (Auto) Intake & Output: Intake & Output 04/07/18 04/08/18 04/08/18 18:59 06:59 18:59 Intake Total 940 1050 Balance 940 1050 Weight 155 lb Intake: Intake, IV Amount 700 750 Right Antecubital 700 750 Oral 240 300 Other: # Voids Urine, Voided 2 3 # Bowel Movements 0 1 Vital Signs: Vital Signs - 24 hr 04/07/18 04/07/18 04/07/18 20:47 21:54 23:43 Temperature 98.8 F Pulse Rate 137 H 116 H Respiratory 22 20 Rate Blood Pressure 125/85 128/82 O2 Sat by Pulse 100 98 100 Oximetry 04/08/18 04/08/18 04/08/18 00:13 00:45 01:01 Temperature 99.2 F 98.7 F Pulse Rate 118 H 100 H Respiratory 20 18 20 Rate Blood Pressure 123/87 128/73 O2 Sat by Pulse 98 98 Oximetry 04/08/18 08:03 Temperature 98.4 F Pulse Rate 84 Respiratory 20 Rate Blood Pressure 111/71 O2 Sat by Pulse 96 Oximetry - Physical Exam Abdominal Exam: Soft, Non-Tender, Non-Distended Wound: Clean, Healing Well (mild purulent drainage Dressing changed, wound irrigated, and lightly packed) Back: No CVA Tenderness Genitalia: Without Inflammation - Plan Wound Care: Yes (wound care nurse) See Orders: Yes Additional Information: Imp: wound infection. stable overall. Discussed w pt and family. Antibiotic rx. Culture - Date & Time of Note Date: 04/08/18 Time: 14:38
--- NOTE | 2018-04-08 15:27 | CP.PCM.CON ---
History of Present Illness - History of Present Illness History of Present Illness: 23 year old male with history of childhood asthma and right sided scrotal mass noted December 2017, who presents to the ED with complaint for noted suprapubic pus (cloudy white brownish) drainage this morning; s/p scrotal biopsy (04/02/18) . Patient reported associated symptoms of subjective fever and mild chills. Patient states that he has been keeping his incision clean and dry as instructed as well as taking the antibiotics given to upon discharge on . Patient had his first scrotal biopsy on 01/05/18 with pathology result of paratesticular biopsy positive for necrotizing granulomas. RIPE rx never started as culture WAS RECOMMENDED SINCE FIRST SPECIMEN WAS NOT SUITABLE FOR CUULTURE PMHx:Childhood asthma and right sided scrotal mass PSHx: Right scrotal biopsy on 01/05/18 and 04/02/18 FHx: Denies Medications: Current prescription of cipro 500mg PO BID Allergies: NKDA Social Hx: Lives with , unemployed. Moved to the [facility] from [place] 3 years ago. Admits to 6 years of tobacco use (2-3 cigarettes per day), once per week ETOH use and denies any illicit drug use Present on Admission - Present on Admission Any Indicators Present on Admission: No Review of Systems - Constitutional Constitutional: Chills, Fever, Headache - EENT Eyes: absent: Blurred Vision, Change in Vision Ears: absent: Dizziness Nose/Mouth/Throat: absent: Nasal Congestion, Nasal Discharge - Cardiovascular Cardiovascular: absent: Chest Pain, Chest Pain at Rest, Diaphoresis, Dyspnea, Lightheadedness, Palpitations, Pedal Edema, Radiating Pain - Respiratory Respiratory: absent: Dyspnea - Gastrointestinal Gastrointestinal: absent: Abdominal Pain, Change in Bowel Habits, Constipation, Diarrhea, Nausea, Vomiting - Genitourinary Genitourinary: Hx /Renal Surgery. absent: Dysuria, Flank Pain, Hematuria, Pyuria, Urinary Frequency - Musculoskeletal Musculoskeletal: absent: Muscle Weakness, Myalgias, Numbness, Tingling - Integumentary Integumentary: absent: Rash - Endocrine Endocrine: absent: Fatigue, Palpitations Past Patient History - Past Medical History & Family History Past Medical History?: Yes - Past Social History Smoking Status: Light Smoker < 10 Cigarettes Daily - CARDIAC Hx Cardiac Disorders: No - PULMONARY Hx Respiratory Disorders: No Hx Asthma: Yes (childhood) - NEUROLOGICAL Hx Neurological Disorder: No - HEENT Hx HEENT Problems: No - RENAL Hx Chronic Kidney Disease: No - ENDOCRINE/METABOLIC Hx Endocrine Disorders: No - HEMATOLOGICAL/ONCOLOGICAL Hx Blood Disorders: No Hx Blood Transfusions: No - INTEGUMENTARY Hx Dermatological Problems: No - MUSCULOSKELETAL/RHEUMATOLOGICAL Hx Falls: No - GASTROINTESTINAL Hx Gastrointestinal Disorders: No Other/Comment: rt.scrotal biopsy - GENITOURINARY/GYNECOLOGICAL Hx Genitourinary Disorders: Yes Other/Comment: scrotal mass - PSYCHIATRIC Hx Substance Use: No - SURGICAL HISTORY Hx Surgeries: No - ANESTHESIA Hx Anesthesia: Yes Hx Anesthesia Reactions: No Hx Malignant Hyperthermia: No Has any member of the family had a problem w/ anesthesia?: No Meds Allergies/Adverse Reactions: Allergies Allergy/AdvReac Type Severity Reaction Status Date / Time No Known Allergies Allergy Verified 04/07/18 20:52 - Medications Medications: Current Medications Piperacillin Sod/Tazobactam Sod (Zosyn 3.375 Gm Iv Premix) 3.375 gm in 50 mls @ 100 mls/hr IVPB Q6H NATALIIA PRN Reason: Protocol Last Admin: 04/08/18 09:49 Dose: 100 mls/hr Vancomycin/Sodium Chloride (Vancomycin 1 Gm/Ns 200 Ml) 1 gm in 200 mls @ 133.333 mls/hr IVPB Q24H NATALIIA PRN Reason: Protocol Stop: 04/13/18 10:01 Last Admin: 04/08/18 10:36 Dose: 133.333 mls/hr Sodium Chloride (Sodium Chloride 0.9%) 1,000 mls @ 100 mls/hr IV .Q10H [facility] Last Admin: 04/08/18 14:49 Dose: 100 mls/hr Pneumococcal Polyvalent Vaccine (Pneumovax 23 Vaccine) 0.5 ml IM .ONCE ONE Stop: 04/10/18 10:01 Saccharomyces Boulardii (Florastor) 250 mg PO BID [facility] Last Admin: 04/08/18 09:49 Dose: 250 mg Physical Exam - Constitutional Appears: Chronically Ill - Head Exam Head Exam: ATRAUMATIC - Eye Exam Eye Exam: absent: Scleral icterus - ENT Exam ENT Exam: Mucous Membranes Dry - Neck Exam Neck exam: Negative for: Lymphadenopathy - Respiratory Exam Respiratory Exam: Decreased Breath Sounds - Cardiovascular Exam Cardiovascular Exam: REGULAR RHYTHM - GI/Abdominal Exam GI & Abdominal Exam: Diminished Bowel Sounds - Rectal Exam Rectal Exam: Deferred - Exam Exam: NORMAL INSPECTION - Extremities Exam Extremities exam: Negative for: tenderness - Back Exam Back exam: absent: CVA tenderness (L), CVA tenderness (R) - Neurological Exam Neurological exam: Alert, CN II-XII Intact, Oriented x3, Reflexes Normal - Psychiatric Exam Psychiatric exam: Normal Mood Results - Vital Signs Recent Vital Signs: Last Vital Signs Temp 98.4 F 04/08/18 08:03 Pulse 84 04/08/18 08:03 Resp 20 04/08/18 08:03 BP 111/71 04/08/18 08:03 Pulse Ox 96 04/08/18 08:03 - Labs Result Diagrams: 04/08/18 08:19 04/08/18 08:19 Labs: Laboratory Results - last 24 hr 04/07/18 04/07/18 04/07/18 21:10 21:14 21:20 WBC 13.1 H D RBC 5.22 Hgb 15.4 Hct 45.4 MCV 87.0 MCH 29.5 MCHC 33.9 RDW 12.3 Plt Count 344 MPV 7.1 L Neut % (Auto) 79.6 H Lymph % (Auto) 10.9 L [place] % (Auto) 7.4 Eos % (Auto) 1.8 Baso % (Auto) 0.3 Neut # (Auto) 10.4 H Lymph # (Auto) 1.4 [place] # (Auto) 1.0 H Eos # (Auto) 0.2 Baso # (Auto) 0.0 pO2 26 L VBG pH 7.33 VBG pCO2 53 VBG HCO3 24.2 VBG Total CO2 29.5 H VBG O2 Sat (Calc) 54.7 VBG Base Excess 1.0 VBG Potassium 4.0 Sodium 139.0 Chloride 102.0 Glucose 88 Lactate 1.5 FiO2 21.0 Potassium Carbon Dioxide Anion Gap BUN Creatinine Est GFR ( Amer) Est GFR (Non-Af Amer) Random Glucose Calcium Phosphorus Magnesium Total Bilirubin AST ALT Alkaline Phosphatase Total Protein Albumin Globulin Albumin/Globulin Ratio Venous Blood Potassium 4.0 Urine Color Yellow Urine Clarity Clear Urine pH 5.0 Ur Specific [place] 1.010 Urine Protein Negative Urine Glucose (UA) Normal Urine Ketones Negative Urine Blood Negative Urine Nitrate Negative Urine Bilirubin Negative Urine Urobilinogen Normal Ur Leukocyte Esterase Neg Urine WBC (Auto) < 1 Urine RBC (Auto) < 1 04/07/18 04/08/18 04/08/18 21:51 08:19 08:19 WBC 9.6 RBC 4.95 Hgb 15.3 Hct 43.3 MCV 87.5 MCH 30.9 MCHC 35.3 RDW 12.1 Plt Count 315 MPV 7.2 Neut % (Auto) 72.2 Lymph % (Auto) 15.9 L [place] % (Auto) 9.3 Eos % (Auto) 2.2 Baso % (Auto) 0.4 Neut # (Auto) 6.9 Lymph # (Auto) 1.5 [place] # (Auto) 0.9 H Eos # (Auto) 0.2 Baso # (Auto) 0.0 pO2 VBG pH VBG pCO2 VBG HCO3 VBG Total CO2 VBG O2 Sat (Calc) VBG Base Excess VBG Potassium Sodium 143 140 Chloride 100 102 Glucose Lactate FiO2 Potassium 4.3 4.0 Carbon Dioxide 28 22 Anion Gap 18 21 H BUN 5 L 6 L Creatinine 0.6 L 0.5 L Est GFR ( Amer) > 60 > 60 Est GFR (Non-Af Amer) > 60 > 60 Random Glucose 98 102 Calcium 9.6 9.6 Phosphorus 4.7 H Magnesium 1.9 Total Bilirubin 0.6 0.9 AST 37 42 ALT 66 63 Alkaline Phosphatase 69 71 Total Protein 8.2 7.7 Albumin 4.7 4.7 Globulin 3.5 3.0 Albumin/Globulin Ratio 1.3 1.6 Venous Blood Potassium Urine Color Urine Clarity Urine pH Ur Specific [place] Urine Protein Urine Glucose (UA) Urine Ketones Urine Blood Urine Nitrate Urine Bilirubin Urine Urobilinogen Ur Leukocyte Esterase Urine WBC (Auto) Urine RBC (Auto) Assessment & Plan (1) Abdominal wall cellulitis Status: Acute (2) Mass of scrotum Status: Acute - Assessment and Plan (Free Text) Assessment: NECROTIZING GRANULOMA FROM TESTICULAR MASS IN A 23 YO BAHRAIN[place] MALE WITH + tb QUANTIFERON CULTURE SENT FROM OR RECC TO START RIPE RX AWAIT ABD WALL CULTURE CONT IV ANTIBIOTICS FOR NOW
[2018-04-09] MEDS: Sodium Chloride 0.9% 1,000 ML IV SCH ×3 (02:15→16:40)
[2018-04-09] MEDS: Piperacill/Tazo 3.375gm in Dex 3.375 GM/50 ML BAG IVPB SCH ×4 (04:08→21:36)
--- NOTE | 2018-04-09 06:20 | CP.PCM.PN ---
Subjective - Date & Time of Evaluation Date of Evaluation: 04/09/18 Time of Evaluation: 07:20 - Subjective Subjective: Patient seen and examined at bedside. Patient in no acute distress, no acute events over night. Patient complains of mild abdominal pain with flexion as well gas discomfort. Patient denies no fever or chills, chest pain, palpitations , shortness of breath, nausea, constipation, diarrhea. Objective - Vital Signs/Intake and Output Vital Signs (last 24 hours): Temp Pulse Resp BP Pulse Ox 97.6 F 72 20 108/62 98 04/08/18 23:18 04/08/18 23:18 04/08/18 23:18 04/08/18 23:18 04/08/18 23:18 Intake and Output: 04/08/18 04/09/18 18:59 06:59 Intake Total 1050 1100 Balance 1050 1100 - Medications Medications: Current Medications Piperacillin Sod/Tazobactam Sod (Zosyn 3.375 Gm Iv Premix) 3.375 gm in 50 mls @ 100 mls/hr IVPB Q6H NATALIIA PRN Reason: Protocol Last Admin: 04/09/18 04:08 Dose: 100 mls/hr Vancomycin/Sodium Chloride (Vancomycin 1 Gm/Ns 200 Ml) 1 gm in 200 mls @ 133.333 mls/hr IVPB Q24H NATALIIA PRN Reason: Protocol Stop: 04/13/18 10:01 Last Admin: 04/08/18 10:36 Dose: 133.333 mls/hr Sodium Chloride (Sodium Chloride 0.9%) 1,000 mls @ 100 mls/hr IV .Q10H [facility] Last Admin: 04/09/18 02:15 Dose: 100 mls/hr Pneumococcal Polyvalent Vaccine (Pneumovax 23 Vaccine) 0.5 ml IM .ONCE ONE Stop: 04/10/18 10:01 Saccharomyces Boulardii (Florastor) 250 mg PO BID [facility] Last Admin: 04/08/18 17:01 Dose: 250 mg - Labs Labs: 04/08/18 08:19 04/08/18 08:19 - Constitutional Appears: Well, No Acute Distress - Head Exam Head Exam: NORMAL INSPECTION - Eye Exam Eye Exam: EOMI, Normal appearance. absent: Conjunctival injection - ENT Exam ENT Exam: Mucous Membranes Moist, Normal Exam - Respiratory Exam Respiratory Exam: Clear to Ausculation Bilateral, NORMAL BREATHING PATTERN. absent: Rales, Rhonchi, Wheezes, Stridor - Cardiovascular Exam Cardiovascular Exam: REGULAR RHYTHM, +S1, +S2. absent: Tachycardia - GI/Abdominal Exam GI & Abdominal Exam: Soft, Normal Bowel Sounds. absent: Distended Additional comments: 10cm suprapubic incision noted, dressed with gauze and tape. Incision draining purulent serosanguinous fluid, with gauze packing. No erythema noted. - Extremities Exam Extremities Exam: Normal Capillary Refill, Normal Inspection. absent: Calf Tenderness, Pedal Edema - Neurological Exam Neurological Exam: Alert, Awake, Oriented x3 - Skin Skin Exam: Normal Color. absent: Erythema Assessment and Plan - Assessment and Plan (Free Text) Assessment: 23 yo M admitted for purulent drainange/cellulitis from suprapubic bx incision ( 01/06/18)of testicular necrotizing granulomas 2/2 suspected TB infection. Pt Quantiferon +. Pt s/p I&D of incision site. 1. Cellulitis at incision site -zosyn 3.375 q6(04/07) -vanco 1g QD(04/07) -Florastor 250mg PO BID -f/u abd wound cx -incision site culture + for coagulase (-) staph -wound care nursing to change dressings -CT abdomen and pelvis, negative for any discrete fluid collection -Urology consult Dr. Heladio Bermudez. Performed bx (04/02), I&D(04/07). -ID consult Dr. uFentes 2. 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 Fuentes -Rifampin 600 PO daily (04/09) -Isoniazid 300mg PO daily (04/09) -Pyrazinamide 1500mg PO daily (04/09) -Ethambutol 1200mg PO daily (04/09) -Vitamin B6 50mg PO daily -awaiting bx results for acid fast bacilli, bx (04/02) -ID consult Dr. Fuentes 3. Ppx -OOB -SCDs -GI ppx not indicated Dispo: -awaiting abd wound culture -continue IV Abx -d/c home pending cx results Yaneth Ramirez PGY1
[2018-04-09 07:47] LABS: BASO % 0.8 % (0.0-2.0); EOS # 0.3 K/uL (0.0-0.7); EOS % 5.2 % (0.0-4.0); HEMOGLOBIN 14.8 g/dL (12.0-18.0); LYMPH # 1.8 K/uL (1.0-4.3); LYMPH % 28.4 % (20.0-40.0); MEAN CORPUSCULAR HEMOGLOBIN 30.7 pg (27.0-31.0); MEAN CORPUSCULAR HGB CONC 34.8 g/dL (33.0-37.0); MEAN PLATELET VOLUME 7.2 fL (7.2-11.7); MONO # 0.7 K/uL (0.0-0.8); MONO % 11.2 % (0.0-10.0); NEUT # 3.4 K/uL (1.8-7.0); NEUT % 54.4 % (50.0-75.0); RBC 4.83 Mil/uL (4.40-5.90); RED CELL DISTRIBUTION WIDTH 12.1 % (11.5-14.5); WHITE BLOOD COUNT 6.3 K/uL (4.8-10.8)
[2018-04-09 08:11] LABS: ALB/GLOB RATIO 1.4 (1.0-2.1); ALBUMIN 4.5 g/dL (3.5-5.0); ALT/SGPT 70 U/L (21-72); AST/SGOT 54 U/L (17-59); BLOOD UREA NITROGEN 5 mg/dL (9-20); CALCIUM 9.7 mg/dl (8.6-10.4); GFR AFRICAN-AMERICAN > 60; GFR NON-AFRICAN AMERICAN > 60
[2018-04-09] MEDS: Saccharomyces Boulardi 250 mg Cap PO SCH ×2 (10:40→17:08)
[2018-04-09] MEDS: Vancomycin 1 gm/NS 200 ml 1 GM/200 ML BAG IVPB SCH (10:40)
[2018-04-09] MEDS ORDERED: Simethicone 80 mg Chewtab PO ONE (11:11)
[2018-04-09] MEDS ORDERED: Iohexol 240 (50 ml) PO ONE (12:45)
--- NOTE | 2018-04-09 14:57 | CT ---
Date of service: 04/09/2018 PROCEDURE: CT Abdomen and Pelvis without intravenous contrast HISTORY: r/o suprabubic abscess COMPARISON: 01/16/2018 TECHNIQUE: Technique. Contrast dose: Radiation dose: Total exam DLP = mGy-cm. This CT exam was performed using one or more of the following dose reduction techniques: Automated exposure control, adjustment of the mA and/or kV according to patient size, and/or use of iterative reconstruction technique. FINDINGS: LOWER THORAX: Unremarkable. LIVER: Unremarkable. No gross lesion or ductal dilatation. GALLBLADDER AND BILE DUCTS: Unremarkable. PANCREAS: Unremarkable. No gross lesion or ductal dilatation. SPLEEN: Unremarkable. ADRENALS: Unremarkable. No mass. KIDNEYS AND URETERS: Unremarkable. No hydronephrosis. No solid mass. VASCULATURE: Unremarkable. No aortic aneurysm. BOWEL: Unremarkable. No obstruction. No gross mural thickening. APPENDIX: Unremarkable. Normal appendix. PERITONEUM: Unremarkable. No free fluid. No free air. LYMPH NODES: Unremarkable. No enlarged lymph nodes. BLADDER: Unremarkable. REPRODUCTIVE: Unremarkable. BONES: No acute fracture. OTHER FINDINGS: There is an open wound in the right suprapubic region with an air tract extending inferiorly. There is infiltration in the right super inguinal subcutaneous fat extending inferiorly, however, no discernible discrete fluid collection or abscess is observed. Consider further assessment with targeted ultrasound to discern a drainable fluid collection. IMPRESSION: Open wound in the right suprapubic region with an air tract extending inferiorly. There is infiltration in the right super inguinal subcutaneous fat extending inferiorly, however, no discernible discrete fluid collection or abscess is observed. Consider further assessment with targeted ultrasound to discern a drainable fluid collection.
--- NOTE | 2018-04-09 17:08 | CP.PCM.PN ---
Subjective - Date & Time of Evaluation Date of Evaluation: 04/09/18 Time of Evaluation: 07:00 - Subjective Subjective: IV rx in progress tolerating well aFB neg thus far Objective - Vital Signs/Intake and Output Vital Signs (last 24 hours): Temp Pulse Resp BP Pulse Ox 97.7 F 72 20 119/84 98 04/09/18 16:42 04/09/18 16:42 04/09/18 16:42 04/09/18 16:42 04/09/18 16:42 Intake and Output: 04/09/18 04/09/18 06:59 18:59 Intake Total 1100 2090 Balance 1100 2090 - Medications Medications: Current Medications Ethambutol HCl (Myambutol) 1,200 mg PO DAILY NATALIIA PRN Reason: Protocol Last Admin: 04/09/18 14:55 Dose: 1,200 mg Piperacillin Sod/Tazobactam Sod (Zosyn 3.375 Gm Iv Premix) 3.375 gm in 50 mls @ 100 mls/hr IVPB Q6H NATALIIA PRN Reason: Protocol Last Admin: 04/09/18 09:28 Dose: 100 mls/hr Vancomycin/Sodium Chloride (Vancomycin 1 Gm/Ns 200 Ml) 1 gm in 200 mls @ 133.333 mls/hr IVPB Q24H NATALIIA PRN Reason: Protocol Stop: 04/13/18 10:01 Last Admin: 04/09/18 10:40 Dose: 133.333 mls/hr Sodium Chloride (Sodium Chloride 0.9%) 1,000 mls @ 100 mls/hr IV .Q10H NATALIIA Last Admin: 04/09/18 02:15 Dose: 100 mls/hr Isoniazid (Niazid) 300 mg PO DAILY NATALIIA PRN Reason: Protocol Last Admin: 04/09/18 14:56 Dose: 300 mg Pneumococcal Polyvalent Vaccine (Pneumovax 23 Vaccine) 0.5 ml IM .ONCE ONE Stop: 04/10/18 10:01 Pyrazinamide (Pyrazinamide) 1,500 mg PO DAILY NATALIIA PRN Reason: Protocol Last Admin: 04/09/18 14:55 Dose: 1,500 mg Pyridoxine HCl (Vitamin B6 50 Mg Tab) 50 mg PO DAILY NATALIIA Last Admin: 04/09/18 14:56 Dose: 50 mg Rifampin (Rifampin Cap) 600 mg PO DAILY NATALIIA PRN Reason: Protocol Last Admin: 04/09/18 14:57 Dose: 600 mg Saccharomyces Boulardii (Florastor) 250 mg PO BID [facility] Last Admin: 04/09/18 10:40 Dose: 250 mg - Labs Labs: 04/09/18 07:37 04/09/18 07:37 - Constitutional Appears: Non-toxic, Chronically Ill - Head Exam Head Exam: NORMOCEPHALIC - Eye Exam Eye Exam: PERRL - ENT Exam ENT Exam: Mucous Membranes Dry - Neck Exam Neck Exam: absent: Lymphadenopathy - Respiratory Exam Respiratory Exam: Decreased Breath Sounds - Cardiovascular Exam Cardiovascular Exam: REGULAR RHYTHM - GI/Abdominal Exam GI & Abdominal Exam: Distended - Rectal Exam Rectal Exam: Deferred - Exam Exam: NORMAL INSPECTION Assessment and Plan (1) Abdominal wall cellulitis Status: Acute (2) Mass of scrotum Status: Acute
[2018-04-10] MEDS: Sodium Chloride 0.9% 1,000 ML IV SCH ×5 (02:45→22:16)
[2018-04-10] MEDS: Piperacill/Tazo 3.375gm in Dex 3.375 GM/50 ML BAG IVPB SCH ×4 (03:33→21:27)
[2018-04-10 07:23] LABS: BASO # 0.1 K/uL (0.0-0.2); EOS # 0.3 K/uL (0.0-0.7); EOS % 4.5 % (0.0-4.0); HEMOGLOBIN 14.6 g/dL (12.0-18.0); LYMPH # 1.7 K/uL (1.0-4.3); LYMPH % 24.2 % (20.0-40.0); MEAN CELL VOLUME 87.5 fL (80.0-94.0); MEAN CORPUSCULAR HEMOGLOBIN 30.3 pg (27.0-31.0); MEAN CORPUSCULAR HGB CONC 34.6 g/dL (33.0-37.0); MEAN PLATELET VOLUME 7.1 fL (7.2-11.7); MONO # 0.7 K/uL (0.0-0.8); MONO % 10.7 % (0.0-10.0); NEUT # 4.1 K/uL (1.8-7.0); NEUT % 59.6 % (50.0-75.0); NRBC % 0.1 % (0.0-2.0); RBC 4.81 Mil/uL (4.40-5.90); WHITE BLOOD COUNT 6.8 K/uL (4.8-10.8)
[2018-04-10 07:40] LABS: ALB/GLOB RATIO 1.4 (1.0-2.1); ALBUMIN 4.5 g/dL (3.5-5.0); ALT/SGPT 61 U/L (21-72); AST/SGOT 42 U/L (17-59); BLOOD UREA NITROGEN 6 mg/dL (9-20); CALCIUM 9.7 mg/dl (8.6-10.4)
[2018-04-10 07:50] LABS: GFR AFRICAN-AMERICAN > 60; GFR NON-AFRICAN AMERICAN > 60
[2018-04-10] MEDS: Saccharomyces Boulardi 250 mg Cap PO SCH ×2 (09:57→16:59)
[2018-04-10] MEDS ORDERED: Pneumococcal 23-Valent Vaccine IM ONE (10:00)
[2018-04-10] MEDS: Vancomycin 1 gm/NS 200 ml 1 GM/200 ML BAG IVPB SCH (10:45)
--- NOTE | 2018-04-10 13:19 | CP.PCM.PN ---
Subjective - Date & Time of Evaluation Date of Evaluation: 04/10/18 Time of Evaluation: 08:00 - Subjective Subjective: discussed on rounds for possible d/c on PO TB meds cultures will take 6 weeks Objective - Vital Signs/Intake and Output Vital Signs (last 24 hours): Temp Pulse Resp BP Pulse Ox 97.8 F 60 20 117/81 96 04/10/18 07:41 04/10/18 07:41 04/10/18 07:41 04/10/18 07:41 04/10/18 07:41 Intake and Output: 04/10/18 04/10/18 06:59 18:59 Intake Total 1900 Balance 1900 - Medications Medications: Current Medications Ethambutol HCl (Myambutol) 1,200 mg PO DAILY [facility] PRN Reason: Protocol Last Admin: 04/10/18 09:58 Dose: 1,200 mg Piperacillin Sod/Tazobactam Sod (Zosyn 3.375 Gm Iv Premix) 3.375 gm in 50 mls @ 100 mls/hr IVPB Q6H [facility] PRN Reason: Protocol Last Admin: 04/10/18 09:59 Dose: 100 mls/hr Vancomycin/Sodium Chloride (Vancomycin 1 Gm/Ns 200 Ml) 1 gm in 200 mls @ 133.333 mls/hr IVPB Q24H [facility] PRN Reason: Protocol Stop: 04/13/18 10:01 Last Admin: 04/10/18 10:45 Dose: 133.333 mls/hr Sodium Chloride (Sodium Chloride 0.9%) 1,000 mls @ 100 mls/hr IV .Q10H [facility] Last Admin: 04/10/18 12:57 Dose: Not Given Isoniazid (Niazid) 300 mg PO DAILY [facility] PRN Reason: Protocol Last Admin: 04/10/18 09:58 Dose: 300 mg Pyrazinamide (Pyrazinamide) 1,500 mg PO DAILY [facility] PRN Reason: Protocol Last Admin: 04/10/18 09:58 Dose: 1,500 mg Pyridoxine HCl (Vitamin B6 50 Mg Tab) 50 mg PO DAILY [facility] Last Admin: 04/10/18 09:58 Dose: 50 mg Rifampin (Rifampin Cap) 600 mg PO DAILY [facility] PRN Reason: Protocol Last Admin: 04/10/18 09:57 Dose: 600 mg Saccharomyces Boulardii (Florastor) 250 mg PO BID [facility] Last Admin: 04/10/18 09:57 Dose: 250 mg - Labs Labs: 04/10/18 07:09 04/10/18 07:09 - Constitutional Appears: Non-toxic, Chronically Ill - Head Exam Head Exam: NORMOCEPHALIC - Eye Exam Eye Exam: PERRL - ENT Exam ENT Exam: Mucous Membranes Dry - Neck Exam Neck Exam: absent: Lymphadenopathy - Respiratory Exam Respiratory Exam: Decreased Breath Sounds - Cardiovascular Exam Cardiovascular Exam: REGULAR RHYTHM - GI/Abdominal Exam GI & Abdominal Exam: Distended - Rectal Exam Rectal Exam: Deferred - Extremities Exam Extremities Exam: absent: Pedal Edema - Back Exam Back Exam: absent: CVA tenderness (L), CVA tenderness (R) - Neurological Exam Neurological Exam: Alert, Awake, Oriented x3 Assessment and Plan (1) Abdominal wall cellulitis Status: Acute (2) Mass of scrotum Status: Acute
--- NOTE | 2018-04-10 13:26 | PCM.URO ---
Urology Progress Note - General General: No Complaints - Subjective Abdominal Pain: Yes (much less) Flank Pain: No Nausea: No Vomiting: No Voiding Well: Yes Dysuria: No Hematuria: No Good Stream: Yes Dsypnea: No Chest Pain: No Fever & Chills: No - Objective Lab Results Last 24 Hours: Laboratory Results - last 24 hr 04/10/18 04/10/18 04/10/18 07:09 07:09 08:53 WBC 6.8 RBC 4.81 Hgb 14.6 Hct 42.1 MCV 87.5 MCH 30.3 MCHC 34.6 RDW 12.0 Plt Count 322 MPV 7.1 L Neut % (Auto) 59.6 Lymph % (Auto) 24.2 Wetzel % (Auto) 10.7 H Eos % (Auto) 4.5 H Baso % (Auto) 1.0 Neut # (Auto) 4.1 Lymph # (Auto) 1.7 Wetzel # (Auto) 0.7 Eos # (Auto) 0.3 Baso # (Auto) 0.1 Sodium 142 Potassium 4.0 Chloride 103 Carbon Dioxide 24 Anion Gap 20 BUN 6 L Creatinine 0.6 L Est GFR ( Amer) > 60 Est GFR (Non-Af Amer) > 60 Random Glucose 87 Calcium 9.7 Phosphorus 5.0 H Magnesium 1.9 Total Bilirubin 1.2 AST 42 ALT 61 Alkaline Phosphatase 62 Total Protein 7.7 Albumin 4.5 Globulin 3.3 Albumin/Globulin Ratio 1.4 Vancomycin Trough < 5.0 L Intake & Output: Intake & Output 04/09/18 04/10/18 04/10/18 18:59 06:59 18:59 Intake Total 2089 1899 Balance 2089 1899 Intake: Intake, IV Amount 1550 1400 Right Antecubital 1550 1400 Oral 540 500 Other: # Voids Urine, Voided 2 2 # Bowel Movements 1 1 Vital Signs: Vital Signs - 24 hr 04/09/18 04/10/18 04/10/18 16:42 00:00 07:41 Temperature 97.7 F 98.3 F 97.8 F Pulse Rate 72 67 60 Respiratory 20 20 20 Rate Blood Pressure 119/84 113/71 117/81 O2 Sat by Pulse 98 98 96 Oximetry - Physical Exam Abdominal Exam: Soft, Non-Tender, Non-Distended Wound: Clean (no purulence. Wound open and clean) Back: No CVA Tenderness - Male Phallus: Normal Testes: Normal: Right (healing well, non-tender) - Plan Wound Care: Yes Ambulation - Out of Bed: Yes Additional Information: Imp: progressing well. Granulomatous orchitis. Poss TB. Wound infection - improved. P: wound care. Meds as per ID. Discussed w pt and - Date & Time of Note Date: 04/10/18
--- NOTE | 2018-04-10 17:50 | CP.PCM.PN ---
Subjective - Date & Time of Evaluation Date of Evaluation: 04/10/18 Time of Evaluation: 09:15 - Subjective Subjective: PGY-1 Leticia Nix D.O. Medicine progress note for Dr. Clancy: Patient seen and examined at bedside. Patient in no acute distress, no acute events over night. Patient complains of mild abdominal pain with flexion as well gas discomfort. Patient denies no fever or chills, chest pain, palpitations , shortness of breath, nausea, constipation, diarrhea. Objective - Vital Signs/Intake and Output Vital Signs (last 24 hours): Temp Pulse Resp BP Pulse Ox 98.1 F 73 20 116/74 98 04/10/18 16:08 04/10/18 16:08 04/10/18 16:08 04/10/18 16:08 04/10/18 16:08 Intake and Output: 04/10/18 04/10/18 06:59 18:59 Intake Total 1900 950 Balance 1900 950 - Medications Medications: Current Medications Ethambutol HCl (Myambutol) 1,200 mg PO DAILY [facility] PRN Reason: Protocol Last Admin: 04/10/18 09:58 Dose: 1,200 mg Piperacillin Sod/Tazobactam Sod (Zosyn 3.375 Gm Iv Premix) 3.375 gm in 50 mls @ 100 mls/hr IVPB Q6H [facility] PRN Reason: Protocol Last Admin: 04/10/18 16:59 Dose: 100 mls/hr Sodium Chloride (Sodium Chloride 0.9%) 1,000 mls @ 100 mls/hr IV .Q10H [facility] Last Admin: 04/10/18 12:57 Dose: Not Given Vancomycin/Sodium Chloride (Vancomycin 1 Gm/Ns 200 Ml) 1 gm in 200 mls @ 133.333 mls/hr IVPB Q8H [facility] PRN Reason: Protocol Stop: 04/15/18 18:01 Isoniazid (Niazid) 300 mg PO DAILY [facility] PRN Reason: Protocol Last Admin: 04/10/18 09:58 Dose: 300 mg Loperamide HCl (Imodium) 2 mg PO QID PRN PRN Reason: Diarrhea Last Admin: 04/10/18 13:53 Dose: 2 mg Nicotine (Nicoderm Cq) 1 patch TD DAILY [facility] Last Admin: 04/10/18 17:00 Dose: 1 patch Pyrazinamide (Pyrazinamide) 1,500 mg PO DAILY [facility] PRN Reason: Protocol Last Admin: 04/10/18 09:58 Dose: 1,500 mg Pyridoxine HCl (Vitamin B6 50 Mg Tab) 50 mg PO DAILY [facility] Last Admin: 04/10/18 09:58 Dose: 50 mg Rifampin (Rifampin Cap) 600 mg PO DAILY [facility] PRN Reason: Protocol Last Admin: 04/10/18 09:57 Dose: 600 mg Saccharomyces Boulardii (Florastor) 250 mg PO BID [facility] Last Admin: 04/10/18 16:59 Dose: 250 mg - Labs Labs: 04/10/18 07:09 04/10/18 07:09 - Constitutional Appears: Well, Non-toxic, No Acute Distress - Head Exam Head Exam: ATRAUMATIC, NORMAL INSPECTION, NORMOCEPHALIC - Eye Exam Eye Exam: EOMI, Normal appearance - ENT Exam ENT Exam: Mucous Membranes Moist, Normal Exam - Neck Exam Neck Exam: Full ROM, Normal Inspection - Respiratory Exam Respiratory Exam: Clear to Ausculation Bilateral, NORMAL BREATHING PATTERN - Cardiovascular Exam Cardiovascular Exam: REGULAR RHYTHM - GI/Abdominal Exam Additional comments: 10 cm suprapubic incision noted, dressed with gauze and tape. Incision draining purulent serosanguinous fluid, with gauze packing. No erythema noted. 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 Pt Quantiferon +. Pt s/p I&D of incision site. Pt started on RIPE 04/09/18. He is asymptomatic. Plan: Cellulitis at incision site, acute, improving -afebrile -WBC 6.8 -zosyn 3.375 q6 (04/07) -vanco 1g q8hrs (04/07)- vanc trough <5 (04/10), increase to 2g BID -blood cx negative >24 hrs -f/u abd wound cx- Strep intermedius/milleri, follow-up sensitivity -incision site culture- Strep intermedius/milleri, follow-up sensitivity -wound care nursing to change dressings -CT abdomen and pelvis, negative for any discrete fluid collection -Urology consult Dr. Heladio Bermudez. Performed bx (04/02), I&D(04/07). -ID consult Dr. 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 Fuentes -Rifampin 600 PO daily (04/09) -Isoniazid 300mg PO daily (04/09) -Pyrazinamide 1500mg PO daily (04/09) -Ethambutol 1200mg PO daily (04/09) -Vitamin B6 50mg PO daily -awaiting bx results for acid fast bacilli, bx (04/02) -ID consult Dr. Fuentes Diarrhea, acute -Imodium 2 mg QID PRN -consider C diff if does not resolve IVF NS @ 100 VTE ppx: OOB, SCDs GI ppx: Florastor Code status: full code Dispo: Discharge home pending [facility] clearance. Need to contact Salome Redd (ID) to determine what is necessary for clearance.
[2018-04-10] MEDS ORDERED: Vancomycin 1 gm/NS 200 ml 1 GM/200 ML BAG IVPB SCH (18:00)
[2018-04-11] MEDS: Piperacill/Tazo 3.375gm in Dex 3.375 GM/50 ML BAG IVPB SCH (04:02)
[2018-04-11] MEDS: Sodium Chloride 0.9% 1,000 ML IV SCH ×2 (06:00→08:45)
[2018-04-11 07:27] LABS: EOS # 0.3 K/uL (0.0-0.7); EOS % 4.9 % (0.0-4.0); HEMOGLOBIN 14.7 g/dL (12.0-18.0); LYMPH # 1.6 K/uL (1.0-4.3); NRBC % 0.1 % (0.0-2.0); WHITE BLOOD COUNT 6.5 K/uL (4.8-10.8)
[2018-04-11 07:48] LABS: ALB/GLOB RATIO 1.4 (1.0-2.1); ALBUMIN 4.5 g/dL (3.5-5.0); ALT/SGPT 57 U/L (21-72); AST/SGOT 36 U/L (17-59); BLOOD UREA NITROGEN 7 mg/dL (9-20); CALCIUM 9.5 mg/dl (8.6-10.4); GFR AFRICAN-AMERICAN > 60; GFR NON-AFRICAN AMERICAN > 60
[2018-04-11 07:49] LABS: BASO # 0.2 K/uL (0.0-0.2); MEAN CORPUSCULAR HEMOGLOBIN 30.8 pg (27.0-31.0); MEAN CORPUSCULAR HGB CONC 35.4 g/dL (33.0-37.0); MEAN PLATELET VOLUME 7.3 fL (7.2-11.7); MONO # 0.7 K/uL (0.0-0.8); MONO % 10.2 % (0.0-10.0); NEUT # 3.8 K/uL (1.8-7.0); NEUT % 57.9 % (50.0-75.0); RBC 4.78 Mil/uL (4.40-5.90); RED CELL DISTRIBUTION WIDTH 12.2 % (11.5-14.5)
--- NOTE | 2018-04-11 08:18 | CP.PCM.PN ---
<Yaneth Ramirez - Last Filed: 04/11/18 08:22> Subjective - Date & Time of Evaluation Date of Evaluation: 04/11/18 Time of Evaluation: 05:20 - Subjective Subjective: Pt seen and examined at bedside, no acute events overnight. Pt continues to feel well, denying any abdominal pain. Pt denies chest pain, SOB, nausea, vomiting, diarrhea, constipation Objective - Vital Signs/Intake and Output Vital Signs (last 24 hours): Temp Pulse Resp BP Pulse Ox 97.8 F 72 20 112/67 98 04/11/18 07:53 04/11/18 07:53 04/11/18 07:53 04/11/18 07:53 04/11/18 07:53 Intake and Output: 04/11/18 04/11/18 06:59 18:59 Intake Total 2190 Balance 2190 - Medications Medications: Current Medications Ethambutol HCl (Myambutol) 1,200 mg PO DAILY [facility] PRN Reason: Protocol Last Admin: 04/10/18 09:58 Dose: 1,200 mg Sodium Chloride (Sodium Chloride 0.9%) 1,000 mls @ 100 mls/hr IV .Q10H [facility] Last Admin: 04/10/18 22:16 Dose: Not Given Vancomycin HCl 1,000 mg/ (Sodium Chloride) 200 mls @ 133.333 mls/hr IVPB Q8H [facility] PRN Reason: Protocol Last Admin: 04/11/18 02:07 Dose: 133.333 mls/hr Isoniazid (Niazid) 300 mg PO DAILY [facility] PRN Reason: Protocol Last Admin: 04/10/18 09:58 Dose: 300 mg Loperamide HCl (Imodium) 2 mg PO QID PRN PRN Reason: Diarrhea Last Admin: 04/10/18 20:30 Dose: 2 mg Nicotine (Nicoderm Cq) 1 patch TD DAILY [facility] Last Admin: 04/10/18 17:00 Dose: 1 patch Pyrazinamide (Pyrazinamide) 1,500 mg PO DAILY [facility] PRN Reason: Protocol Last Admin: 04/10/18 09:58 Dose: 1,500 mg Pyridoxine HCl (Vitamin B6 50 Mg Tab) 50 mg PO DAILY [facility] Last Admin: 04/10/18 09:58 Dose: 50 mg Rifampin (Rifampin Cap) 600 mg PO DAILY [facility] PRN Reason: Protocol Last Admin: 04/10/18 09:57 Dose: 600 mg Saccharomyces Boulardii (Florastor) 250 mg PO BID [facility] Last Admin: 04/10/18 16:59 Dose: 250 mg - Labs Labs: 04/11/18 07:20 04/11/18 07:20 - Constitutional Appears: Non-toxic, No Acute Distress - Head Exam Head Exam: ATRAUMATIC, NORMAL INSPECTION, NORMOCEPHALIC - Eye Exam Eye Exam: EOMI, Normal appearance - ENT Exam ENT Exam: Mucous Membranes Moist, Normal Exam - Neck Exam Neck Exam: Normal Inspection - Respiratory Exam Respiratory Exam: Clear to Ausculation Bilateral, NORMAL BREATHING PATTERN. absent: Rhonchi, Wheezes - Cardiovascular Exam Cardiovascular Exam: REGULAR RHYTHM, +S1, +S2. absent: Tachycardia - GI/Abdominal Exam GI & Abdominal Exam: Soft, Normal Bowel Sounds. absent: Distended - Extremities Exam Extremities Exam: Normal Capillary Refill, Normal Inspection. absent: Calf Tenderness, Pedal Edema - Neurological Exam Neurological Exam: Alert, Oriented x3 - Psychiatric Exam Psychiatric exam: Normal Affect - Skin Skin Exam: Normal Color Assessment and Plan - Assessment and Plan (Free Text) Assessment: 23 yo M admitted for purulent drainange/cellulitis from suprapubic bx incision ( 01/06/18)of testicular necrotizing granulomas 2/2 suspected TB infection. Pt Quantiferon +. Pt s/p I&D of incision site. 1. Cellulitis at incision site -vanco 1g QD(04/07) -Florastor 250mg PO BID -f/u abd wound cx -incision site culture + for coagulase (-) staph -abdomen grew strep intermedius millerii -wound care nursing to change dressings -CT abdomen and pelvis, negative for any discrete fluid collection -Urology consult Dr. Heladio Bermudez. Performed bx (04/02), I&D(04/07). -ID consult Dr. Fuentes 2. 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 Fuentes -Rifampin 600 PO daily (04/09) -Isoniazid 300mg PO daily (04/09) -Pyrazinamide 1500mg PO daily (04/09) -Ethambutol 1200mg PO daily (04/09) -Vitamin B6 50mg PO daily -awaiting bx results for acid fast bacilli, bx (04/02) -ID consult Dr. Fuentes 3. Ppx -OOB -SCDs -GI ppx not indicated Dispo: -awaiting abd wound culture -continue IV Abx -d/c home pending cx results Yaneth Ramirez PGY1 <Sheng Olivo - Last Filed: 04/11/18 21:36> Objective - Vital Signs/Intake and Output Vital Signs (last 24 hours): Temp Pulse Resp BP Pulse Ox 97.9 F 94 H 20 111/71 98 04/11/18 16:00 04/11/18 16:00 04/11/18 16:00 04/11/18 16:00 04/11/18 16:00 Intake and Output: 04/11/18 04/12/18 18:59 06:59 Intake Total 1210 Balance 1210 - Medications Medications: Current Medications Ethambutol HCl (Myambutol) 1,200 mg PO DAILY [facility] PRN Reason: Protocol Last Admin: 04/11/18 10:36 Dose: 1,200 mg Sodium Chloride (Sodium Chloride 0.9%) 1,000 mls @ 100 mls/hr IV .Q10H [facility] Last Admin: 04/11/18 08:45 Dose: 100 mls/hr Vancomycin HCl 1,000 mg/ (Sodium Chloride) 200 mls @ 133.333 mls/hr IVPB Q8H [facility] PRN Reason: Protocol Last Admin: 04/11/18 17:31 Dose: 133.333 mls/hr Isoniazid (Niazid) 300 mg PO DAILY [facility] PRN Reason: Protocol Last Admin: 04/11/18 10:37 Dose: 300 mg Loperamide HCl (Imodium) 2 mg PO QID PRN PRN Reason: Diarrhea Last Admin: 04/10/18 20:30 Dose: 2 mg Nicotine (Nicoderm Cq) 1 patch TD DAILY [facility] Last Admin: 04/11/18 10:38 Dose: Not Given Pyrazinamide (Pyrazinamide) 1,500 mg PO DAILY [facility] PRN Reason: Protocol Last Admin: 04/11/18 10:38 Dose: 1,500 mg Pyridoxine HCl (Vitamin B6 50 Mg Tab) 50 mg PO DAILY [facility] Last Admin: 04/11/18 10:54 Dose: 50 mg Rifampin (Rifampin Cap) 600 mg PO DAILY [facility] PRN Reason: Protocol Last Admin: 04/11/18 10:37 Dose: 600 mg Saccharomyces Boulardii (Florastor) 250 mg PO BID [facility] Last Admin: 04/11/18 17:28 Dose: 250 mg - Labs Labs: 04/11/18 07:20 04/11/18 07:20 Attending/Attestation - Attestation I have personally seen and examined this patient.: Yes I have fully participated in the care of the patient.: Yes I have reviewed all pertinent clinical information, including history, physical exam and plan: Yes Notes (Text): 04/11/18 21:23 Patient was seen and examined at 11:00 AM 04/11/18 370 A. Upon FULL ROS patient currently offers NO complaints Also on EXAM: GI: suprapubic area there is an elliptical 3.5 cm surgical site with light yellow green material on nonwoven gauze (which was changed at the time of my exam), BSx4, NT, ND, NO HSM, NO guarding/rebound tenderness Scrotum: NO edema, there is a horizontal incision Right Lateral Lower Scrotum with approximation of the skin with small amount of clear sersosanguineous fluid that leaked out at the time of my exam, Scrotum is nontender to palpation NO bilateral inguinal lymphadenopathy Plan: Wound culture 04/07/18 from the suprapubic area grew Strep intermedius milleri and Coag Neg Staph. As there is resistence to PCN, Zosyn was discontinued and patient was continued on Vancomycin 1 gm IV Q8H (2 AM, 10 AM, and 6 PM). F/U complete sensitivities. Wound Culture from 04/02/18 did not show any Fungal elements and was negative for AFB. F/U Vancomycin Trough at 1:30 AM (30 minutes before 4th dose at 2 AM) 04/12/18. Goal Vanco Trough should be 15. F/U Blood Culture which is negative at 72 hours. F/U with ID Dr. Fuentes as to when last dose of RIPE Tx should be (30 days total from what date?). F/U with Urology Dr. Catracho Bermudez as to further recommendations from Urology standpoint. Sheng Olivo D.O.
[2018-04-11] MEDS: Saccharomyces Boulardi 250 mg Cap PO SCH ×2 (10:36→17:28)
--- NOTE | 2018-04-11 18:45 | CP.PCM.PN ---
Subjective - Date & Time of Evaluation Date of Evaluation: 04/11/18 Time of Evaluation: 09:00 - Subjective Subjective: afebrile alert nad cultures and path reports reviewed to cont rx for presumed TB scrotum- will take 6 weeks for cultures Objective - Vital Signs/Intake and Output Vital Signs (last 24 hours): Temp Pulse Resp BP Pulse Ox 97.9 F 94 H 20 111/71 98 04/11/18 16:00 04/11/18 16:00 04/11/18 16:00 04/11/18 16:00 04/11/18 16:00 Intake and Output: 04/11/18 04/11/18 06:59 18:59 Intake Total 2190 1210 Balance 2190 1210 - Medications Medications: Current Medications Ethambutol HCl (Myambutol) 1,200 mg PO DAILY [facility] PRN Reason: Protocol Last Admin: 04/11/18 10:36 Dose: 1,200 mg Sodium Chloride (Sodium Chloride 0.9%) 1,000 mls @ 100 mls/hr IV .Q10H [facility] Last Admin: 04/11/18 08:45 Dose: 100 mls/hr Vancomycin HCl 1,000 mg/ (Sodium Chloride) 200 mls @ 133.333 mls/hr IVPB Q8H [facility] PRN Reason: Protocol Last Admin: 04/11/18 17:31 Dose: 133.333 mls/hr Isoniazid (Niazid) 300 mg PO DAILY [facility] PRN Reason: Protocol Last Admin: 04/11/18 10:37 Dose: 300 mg Loperamide HCl (Imodium) 2 mg PO QID PRN PRN Reason: Diarrhea Last Admin: 04/10/18 20:30 Dose: 2 mg Nicotine (Nicoderm Cq) 1 patch TD DAILY [facility] Last Admin: 04/11/18 10:38 Dose: Not Given Pyrazinamide (Pyrazinamide) 1,500 mg PO DAILY [facility] PRN Reason: Protocol Last Admin: 04/11/18 10:38 Dose: 1,500 mg Pyridoxine HCl (Vitamin B6 50 Mg Tab) 50 mg PO DAILY [facility] Last Admin: 04/11/18 10:54 Dose: 50 mg Rifampin (Rifampin Cap) 600 mg PO DAILY [facility] PRN Reason: Protocol Last Admin: 04/11/18 10:37 Dose: 600 mg Saccharomyces Boulardii (Florastor) 250 mg PO BID [facility] Last Admin: 04/11/18 17:28 Dose: 250 mg - Labs Labs: 04/11/18 07:20 04/11/18 07:20 - Constitutional Appears: Non-toxic, Chronically Ill - Head Exam Head Exam: NORMOCEPHALIC - Eye Exam Eye Exam: PERRL - ENT Exam ENT Exam: Mucous Membranes Dry - Neck Exam Neck Exam: absent: Lymphadenopathy - Respiratory Exam Respiratory Exam: Decreased Breath Sounds - Cardiovascular Exam Cardiovascular Exam: REGULAR RHYTHM - GI/Abdominal Exam GI & Abdominal Exam: Distended Assessment and Plan (1) Abdominal wall cellulitis Status: Acute (2) Mass of scrotum Status: Acute
[2018-04-12] MEDS: Sodium Chloride 0.9% 1,000 ML IV SCH ×2 (02:27→14:18)
--- NOTE | 2018-04-12 04:27 | CP.PCM.PN ---
<RamirezYaneth - Last Filed: 04/12/18 04:34> Subjective - Date & Time of Evaluation Date of Evaluation: 04/12/18 Time of Evaluation: 04:26 - Subjective Subjective: Pt seen and examined at bedside; no acute events and no complaints. Denies chest pain, SOB, abdominal pain, incision site pain Objective - Vital Signs/Intake and Output Vital Signs (last 24 hours): Temp Pulse Resp BP Pulse Ox 98.1 F 92 H 20 107/70 98 04/11/18 23:19 04/11/18 23:19 04/11/18 23:19 04/11/18 23:19 04/11/18 23:19 Intake and Output: 04/11/18 04/12/18 18:59 06:59 Intake Total 1210 Balance 1210 - Medications Medications: Current Medications Ethambutol HCl (Myambutol) 1,200 mg PO DAILY [facility] PRN Reason: Protocol Last Admin: 04/11/18 10:36 Dose: 1,200 mg Sodium Chloride (Sodium Chloride 0.9%) 1,000 mls @ 100 mls/hr IV .Q10H [facility] Last Admin: 04/12/18 02:27 Dose: 100 mls/hr Vancomycin HCl 1,000 mg/ (Sodium Chloride) 200 mls @ 133.333 mls/hr IVPB Q8H [facility] PRN Reason: Protocol Last Admin: 04/12/18 02:25 Dose: 133.333 mls/hr Isoniazid (Niazid) 300 mg PO DAILY [facility] PRN Reason: Protocol Last Admin: 04/11/18 10:37 Dose: 300 mg Loperamide HCl (Imodium) 2 mg PO QID PRN PRN Reason: Diarrhea Last Admin: 04/10/18 20:30 Dose: 2 mg Nicotine (Nicoderm Cq) 1 patch TD DAILY [facility] Last Admin: 04/11/18 10:38 Dose: Not Given Pyrazinamide (Pyrazinamide) 1,500 mg PO DAILY [facility] PRN Reason: Protocol Last Admin: 04/11/18 10:38 Dose: 1,500 mg Pyridoxine HCl (Vitamin B6 50 Mg Tab) 50 mg PO DAILY [facility] Last Admin: 04/11/18 10:54 Dose: 50 mg Rifampin (Rifampin Cap) 600 mg PO DAILY [facility] PRN Reason: Protocol Last Admin: 04/11/18 10:37 Dose: 600 mg Saccharomyces Boulardii (Florastor) 250 mg PO BID [facility] Last Admin: 04/11/18 17:28 Dose: 250 mg - Labs Labs: 04/11/18 07:20 04/11/18 07:20 Assessment and Plan - Assessment and Plan (Free Text) Assessment: 23 yo M admitted for purulent drainange/cellulitis from suprapubic bx incision ( 01/06/18)of testicular necrotizing granulomas 2/2 suspected TB infection. Pt Quantiferon +. Pt s/p I&D of incision site. 1. Cellulitis at incision site -vanco 1g Q8(04/07) -Florastor 250mg PO BID -f/u abd wound cx -incision site culture + for coagulase (-) staph -abdomen grew strep intermedius millerii -wound care nursing to change dressings -CT abdomen and pelvis, negative for any discrete fluid collection -Urology consult Dr. Heladio Bermudez. Performed bx (04/02), I&D(04/07). -ID consult Dr. Fuentes 2. 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 Fuentes -Rifampin 600 PO daily (04/09) -Isoniazid 300mg PO daily (04/09) -Pyrazinamide 1500mg PO daily (04/09) -Ethambutol 1200mg PO daily (04/09) -Vitamin B6 50mg PO daily -awaiting bx results for acid fast bacilli, bx (04/02) -ID consult Dr. Fuentes 3. Ppx -OOB -SCDs -GI ppx not indicated Dispo: -awaiting abd wound culture -continue IV Abx -d/c home pending cx results Yaneth Ramirez PGY1 <Juan Uribe H - Last Filed: 04/12/18 11:44> Objective - Vital Signs/Intake and Output Vital Signs (last 24 hours): Temp Pulse Resp BP Pulse Ox 98.1 F 63 20 111/52 L 96 04/12/18 08:32 04/12/18 08:32 04/12/18 08:32 04/12/18 08:32 04/12/18 08:32 Intake and Output: 04/12/18 04/12/18 06:59 18:59 Intake Total 1160 Balance 1160 - Medications Medications: Current Medications Ethambutol HCl (Myambutol) 1,200 mg PO DAILY [facility] PRN Reason: Protocol Last Admin: 04/12/18 10:25 Dose: 1,200 mg Sodium Chloride (Sodium Chloride 0.9%) 1,000 mls @ 100 mls/hr IV .Q10H [facility] Last Admin: 04/12/18 02:27 Dose: 100 mls/hr Vancomycin HCl 1,000 mg/ (Sodium Chloride) 200 mls @ 133.333 mls/hr IVPB Q8H [facility] PRN Reason: Protocol Last Admin: 04/12/18 10:22 Dose: 133.333 mls/hr Isoniazid (Niazid) 300 mg PO DAILY [facility] PRN Reason: Protocol Last Admin: 04/12/18 10:24 Dose: 300 mg Loperamide HCl (Imodium) 2 mg PO QID PRN PRN Reason: Diarrhea Last Admin: 04/10/18 20:30 Dose: 2 mg Nicotine (Nicoderm Cq) 1 patch TD DAILY [facility] Last Admin: 04/12/18 10:25 Dose: Not Given Pyrazinamide (Pyrazinamide) 1,500 mg PO DAILY [facility] PRN Reason: Protocol Last Admin: 04/12/18 10:25 Dose: 1,500 mg Pyridoxine HCl (Vitamin B6 50 Mg Tab) 50 mg PO DAILY [facility] Last Admin: 04/12/18 10:24 Dose: 50 mg Rifampin (Rifampin Cap) 600 mg PO DAILY [facility] PRN Reason: Protocol Last Admin: 04/12/18 10:25 Dose: 600 mg Saccharomyces Boulardii (Florastor) 250 mg PO BID [facility] Last Admin: 04/12/18 10:24 Dose: 250 mg - Labs Labs: 04/12/18 08:01 04/12/18 08:01 Attending/Attestation - Attestation I have personally seen and examined this patient.: Yes I have fully participated in the care of the patient.: Yes I have reviewed all pertinent clinical information, including history, physical exam and plan: Yes Notes (Text): Medical attending: Patient was seen and examined by me. Agree with the above note by the resident The patient was not in any acute distress when I saw him. He denied abdominal pain at the site of inscision and also reported the scrotal pain was very mild as well. He explains that he does not have pain when walking and is urinating fine. Tolerating diet ok as well. Denied fevers, denied chills. He currently is on TB regimen medication as well as IV Vancomycin. His cultures from the incision site grew out +strep intermedius as well as + coagulase negative staph. thank you Juan Uribe
[2018-04-12 08:11] LABS: BASO % 0.9 % (0.0-2.0); EOS # 0.2 K/uL (0.0-0.7); EOS % 4.3 % (0.0-4.0); HEMOGLOBIN 14.7 g/dL (12.0-18.0); LYMPH # 1.4 K/uL (1.0-4.3); LYMPH % 25.7 % (20.0-40.0); MEAN CELL VOLUME 87.2 fL (80.0-94.0); MEAN CORPUSCULAR HEMOGLOBIN 30.9 pg (27.0-31.0); MEAN CORPUSCULAR HGB CONC 35.4 g/dL (33.0-37.0); MONO # 0.5 K/uL (0.0-0.8); MONO % 9.1 % (0.0-10.0); NEUT # 3.4 K/uL (1.8-7.0); RBC 4.77 Mil/uL (4.40-5.90); RED CELL DISTRIBUTION WIDTH 11.9 % (11.5-14.5); WHITE BLOOD COUNT 5.6 K/uL (4.8-10.8)
[2018-04-12 08:54] LABS: ALB/GLOB RATIO 1.4 (1.0-2.1); ALBUMIN 4.3 g/dL (3.5-5.0); ALT/SGPT 51 U/L (21-72); AST/SGOT 37 U/L (17-59); BLOOD UREA NITROGEN 5 mg/dL (9-20); CALCIUM 9.6 mg/dl (8.6-10.4); GFR AFRICAN-AMERICAN > 60; GFR NON-AFRICAN AMERICAN > 60
[2018-04-12] MEDS: Saccharomyces Boulardi 250 mg Cap PO SCH ×2 (10:24→17:24)
[2018-04-13] MEDS: Sodium Chloride 0.9% 1,000 ML IV SCH ×2 (01:00→10:51)
--- NOTE | 2018-04-13 07:01 | CP.PCM.PN ---
Subjective - Date & Time of Evaluation Date of Evaluation: 04/13/18 - Subjective Subjective: PGY-1 Leticia Nix D.O. Medicine progress note for Dr. Fuller service: Objective - Vital Signs/Intake and Output Vital Signs (last 24 hours): Temp Pulse Resp BP Pulse Ox 98 F 73 20 108/68 99 04/12/18 23:18 04/12/18 23:18 04/12/18 23:18 04/12/18 23:18 04/12/18 23:18 Intake and Output: 04/13/18 04/13/18 06:59 18:59 Intake Total 1040 Balance 1040 - Medications Medications: Current Medications Ethambutol HCl (Myambutol) 1,200 mg PO DAILY NATALIIA PRN Reason: Protocol Last Admin: 04/12/18 10:25 Dose: 1,200 mg Sodium Chloride (Sodium Chloride 0.9%) 1,000 mls @ 100 mls/hr IV .Q10H NATALIIA Last Admin: 04/13/18 01:00 Dose: 100 mls/hr Vancomycin HCl 1,000 mg/ (Sodium Chloride) 200 mls @ 133.333 mls/hr IVPB Q8H NATALIIA PRN Reason: Protocol Last Admin: 04/13/18 01:31 Dose: 133.333 mls/hr Isoniazid (Niazid) 300 mg PO DAILY NATALIIA PRN Reason: Protocol Last Admin: 04/12/18 10:24 Dose: 300 mg Loperamide HCl (Imodium) 2 mg PO QID PRN PRN Reason: Diarrhea Last Admin: 04/10/18 20:30 Dose: 2 mg Nicotine (Nicoderm Cq) 1 patch TD DAILY [facility] Last Admin: 04/12/18 10:25 Dose: Not Given Pyrazinamide (Pyrazinamide) 1,500 mg PO DAILY NATALIIA PRN Reason: Protocol Last Admin: 04/12/18 10:25 Dose: 1,500 mg Pyridoxine HCl (Vitamin B6 50 Mg Tab) 50 mg PO DAILY NATALIIA Last Admin: 04/12/18 10:24 Dose: 50 mg Rifampin (Rifampin Cap) 600 mg PO DAILY NATALIIA PRN Reason: Protocol Last Admin: 04/12/18 10:25 Dose: 600 mg Saccharomyces Boulardii (Florastor) 250 mg PO BID [facility] Last Admin: 04/12/18 17:24 Dose: 250 mg - Labs Labs: 04/12/18 08:01 04/12/18 08:01
--- NOTE | 2018-04-13 07:40 | PCM.URO ---
Urology Progress Note - Objective Lab Studies: Reviewed (full note to be dictated no gu changes) Lab Results Last 24 Hours: Laboratory Results - last 24 hr 04/12/18 04/12/18 08:01 08:01 WBC 5.6 RBC 4.77 Hgb 14.7 Hct 41.6 MCV 87.2 MCH 30.9 MCHC 35.4 RDW 11.9 Plt Count 331 MPV 7.0 L Neut % (Auto) 60.0 Lymph % (Auto) 25.7 [place] % (Auto) 9.1 Eos % (Auto) 4.3 H Baso % (Auto) 0.9 Neut # (Auto) 3.4 Lymph # (Auto) 1.4 [place] # (Auto) 0.5 Eos # (Auto) 0.2 Baso # (Auto) 0.0 Sodium 144 Potassium 3.9 Chloride 105 Carbon Dioxide 26 Anion Gap 16 BUN 5 L Creatinine 0.5 L Est GFR ( Amer) > 60 Est GFR (Non-Af Amer) > 60 Random Glucose 94 Calcium 9.6 Phosphorus 4.0 Magnesium 1.9 Total Bilirubin 0.4 AST 37 ALT 51 Alkaline Phosphatase 76 Total Protein 7.3 Albumin 4.3 Globulin 3.0 Albumin/Globulin Ratio 1.4 Intake & Output: Intake & Output 04/12/18 04/13/18 04/13/18 18:59 06:59 18:59 Intake Total 1100 1040 Balance 1100 1040 Intake: Intake, IV Amount 800 800 Right Antecubital 800 800 Oral 300 240 Other: # Voids Urine, Voided 2 2 # Bowel Movements 0 0 Vital Signs: Vital Signs - 24 hr 04/12/18 04/12/18 04/12/18 08:32 16:00 23:18 Temperature 98.1 F 98 F 98 F Pulse Rate 63 92 H 73 Respiratory 20 20 20 Rate Blood Pressure 111/52 L 121/77 108/68 O2 Sat by Pulse 96 100 99 Oximetry
[2018-04-13 08:13] LABS: BASO # 0.1 K/uL (0.0-0.2); EOS # 0.3 K/uL (0.0-0.7); MEAN CELL VOLUME 87.4 fL (80.0-94.0); RBC 4.84 Mil/uL (4.40-5.90)
[2018-04-13 08:22] LABS: EOS % 3.3 % (0.0-4.0); HEMOGLOBIN 14.9 g/dL (12.0-18.0); LYMPH # 2.4 K/uL (1.0-4.3); MEAN CORPUSCULAR HEMOGLOBIN 30.8 pg (27.0-31.0); MEAN CORPUSCULAR HGB CONC 35.2 g/dL (33.0-37.0); MEAN PLATELET VOLUME 7.9 fL (7.2-11.7); MONO # 0.7 K/uL (0.0-0.8); MONO % 6.9 % (0.0-10.0); NEUT # 5.9 K/uL (1.8-7.0); NEUT % 62.8 % (50.0-75.0); NRBC % 0.3 % (0.0-2.0); RED CELL DISTRIBUTION WIDTH 12.2 % (11.5-14.5)
[2018-04-13 08:23] LABS: ALB/GLOB RATIO 1.3 (1.0-2.1); ALBUMIN 4.5 g/dL (3.5-5.0); ALT/SGPT 44 U/L (21-72); AST/SGOT 44 U/L (17-59); BLOOD UREA NITROGEN 5 mg/dL (9-20); CALCIUM 9.6 mg/dl (8.6-10.4); GFR AFRICAN-AMERICAN > 60; GFR NON-AFRICAN AMERICAN > 60
[2018-04-13 08:26] LABS: WHITE BLOOD COUNT 9.4 K/uL (4.8-10.8)
--- NOTE | 2018-04-13 10:40 | CP.PCM.PN ---
Subjective - Date & Time of Evaluation Date of Evaluation: 04/13/18 Time of Evaluation: 09:00 - Subjective Subjective: events noted rx in progress Objective - Vital Signs/Intake and Output Vital Signs (last 24 hours): Temp Pulse Resp BP Pulse Ox 97.5 F L 73 20 106/65 98 04/13/18 08:04 04/13/18 08:04 04/13/18 08:04 04/13/18 08:04 04/13/18 08:04 Intake and Output: 04/13/18 04/13/18 06:59 18:59 Intake Total 1040 Balance 1040 - Medications Medications: Current Medications Ethambutol HCl (Myambutol) 1,200 mg PO DAILY NATALIIA PRN Reason: Protocol Last Admin: 04/12/18 10:25 Dose: 1,200 mg Sodium Chloride (Sodium Chloride 0.9%) 1,000 mls @ 100 mls/hr IV .Q10H NATALIIA Last Admin: 04/13/18 01:00 Dose: 100 mls/hr Vancomycin HCl 1,000 mg/ (Sodium Chloride) 200 mls @ 133.333 mls/hr IVPB Q8H NATALIIA PRN Reason: Protocol Last Admin: 04/13/18 01:31 Dose: 133.333 mls/hr Isoniazid (Niazid) 300 mg PO DAILY NATALIIA PRN Reason: Protocol Last Admin: 04/12/18 10:24 Dose: 300 mg Loperamide HCl (Imodium) 2 mg PO QID PRN PRN Reason: Diarrhea Last Admin: 04/10/18 20:30 Dose: 2 mg Nicotine (Nicoderm Cq) 1 patch TD DAILY [facility] Last Admin: 04/12/18 10:25 Dose: Not Given Pyrazinamide (Pyrazinamide) 1,500 mg PO DAILY NATALIIA PRN Reason: Protocol Last Admin: 04/12/18 10:25 Dose: 1,500 mg Pyridoxine HCl (Vitamin B6 50 Mg Tab) 50 mg PO DAILY NATALIIA Last Admin: 04/12/18 10:24 Dose: 50 mg Rifampin (Rifampin Cap) 600 mg PO DAILY NATALIIA PRN Reason: Protocol Last Admin: 04/12/18 10:25 Dose: 600 mg Saccharomyces Boulardii (Florastor) 250 mg PO BID NATALIIA Last Admin: 04/12/18 17:24 Dose: 250 mg - Labs Labs: 04/13/18 07:42 04/13/18 07:42 - Constitutional Appears: Non-toxic - Head Exam Head Exam: NORMOCEPHALIC - Eye Exam Eye Exam: PERRL - ENT Exam ENT Exam: Mucous Membranes Dry - Neck Exam Neck Exam: absent: Lymphadenopathy - Respiratory Exam Respiratory Exam: Decreased Breath Sounds Assessment and Plan (1) Abdominal wall cellulitis Status: Acute (2) Mass of scrotum Status: Acute
[2018-04-13] MEDS: Saccharomyces Boulardi 250 mg Cap PO SCH (10:50)
--- NOTE | 2018-04-13 11:28 | RAD ---
Date of service: 04/13/2018 HISTORY: hx tb r/o COMPARISON: 01/12/2018 TECHNIQUE: Chest PA and lateral FINDINGS: LUNGS: No active pulmonary disease. PLEURA: No significant pleural effusion identified. No pneumothorax apparent. CARDIOVASCULAR: Normal. OSSEOUS STRUCTURES: No significant abnormalities. VISUALIZED UPPER ABDOMEN: Normal. OTHER FINDINGS: None. IMPRESSION: No active disease.
--- NOTE | 2018-04-13 12:04 | PN ---
Copied To: Yogesh Bermudez MD Attending MD: Yogesh Bermudez MD DATE: 04/13/2018 SUBJECTIVE: See the previous dictated notes. The patient is currently resting comfortably. Physical examination has no other change. Wound incision is healing nicely. From Urology standpoint, the diagnosis at this time is wound infection and the plan is as follows. Outpatient followup from Urology standpoint once he is cleared by Infectious Disease and by the medical team. From Urology standpoint, the patient is clear for discharge and he will have outpatient wound care and followup with our office. Also of significance to note, the patient is now being treated for tuberculosis with the TB medications. Yogesh Bermudez MD
[2018-04-13 16:01] VITALS: BP 115/75; PULSE 67; TEMP 98; O2SAT 97
--- NOTE | 2018-04-13 19:44 | CP.PCM.DIS ---
Provider - Provider Date of Admission: 04/07/18 22:50 Attending physician: Aldo Clancy MD Primary care physician: none Consults: ID (Alfredo), urology (Aidan) Time Spent in preparation of Discharge (in minutes): 45 Diagnosis - Discharge Diagnosis (1) Abdominal wall cellulitis Status: Acute Priority: High (2) Mass of scrotum Status: Acute Priority: High (3) Inactive tuberculosis Status: Chronic Priority: High Hospital Course - Lab Results Lab Results: Micro Results 04/07/18 21:30 Blood Blood Culture - Final NO GROWTH AFTER 5 DAYS 04/07/18 21:30 Blood Gram Stain - Final TEST NOT PERFORMED 04/07/18 21:00 Blood Blood Culture - Final NO GROWTH AFTER 5 DAYS 04/07/18 21:00 Blood Gram Stain - Final TEST NOT PERFORMED 04/07/18 Unknown Abdomen Gram Stain - Final 04/07/18 Unknown Abdomen Wound Culture - Final Strep Intermedius/Milleri 04/07/18 22:00 Incision Site Gram Stain - Final 04/07/18 22:00 Incision Site Wound Culture - Final Strep Intermedius/Milleri Coagulase Neg Staphylococcus Most Recent Lab Values WBC 9.4 K/uL (4.8-10.8) D 04/13/18 07:42 RBC 4.84 Mil/uL (4.40-5.90) 04/13/18 07:42 Hgb 14.9 g/dL (12.0-18.0) 04/13/18 07:42 Hct 42.3 % (35.0-51.0) 04/13/18 07:42 MCV 87.4 fL (80.0-94.0) 04/13/18 07:42 MCH 30.8 pg (27.0-31.0) 04/13/18 07:42 MCHC 35.2 g/dL (33.0-37.0) 04/13/18 07:42 RDW 12.2 % (11.5-14.5) 04/13/18 07:42 Plt Count 369 K/uL (130-400) 04/13/18 07:42 MPV 7.9 fL (7.2-11.7) 04/13/18 07:42 Neut % (Auto) 62.8 % (50.0-75.0) 04/13/18 07:42 Lymph % (Auto) 26.0 % (20.0-40.0) 04/13/18 07:42 [place] % (Auto) 6.9 % (0.0-10.0) 04/13/18 07:42 Eos % (Auto) 3.3 % (0.0-4.0) 04/13/18 07:42 Baso % (Auto) 1.0 % (0.0-2.0) 04/13/18 07:42 Neut # (Auto) 5.9 K/uL (1.8-7.0) 04/13/18 07:42 Lymph # (Auto) 2.4 K/uL (1.0-4.3) 04/13/18 07:42 [place] # (Auto) 0.7 K/uL (0.0-0.8) 04/13/18 07:42 Eos # (Auto) 0.3 K/uL (0.0-0.7) 04/13/18 07:42 Baso # (Auto) 0.1 K/uL (0.0-0.2) 04/13/18 07:42 pO2 26 mm/Hg (30-55) L 04/07/18 21:10 VBG pH 7.33 (7.32-7.43) 04/07/18 21:10 VBG pCO2 53 mmHg (40-60) 04/07/18 21:10 VBG HCO3 24.2 mmol/L 04/07/18 21:10 VBG Total CO2 29.5 mmol/L (22-28) H 04/07/18 21:10 VBG O2 Sat (Calc) 54.7 % (40-65) 04/07/18 21:10 VBG Base Excess 1.0 mmol/L (0.0-2.0) 04/07/18 21:10 VBG Potassium 4.0 mmol/L (3.6-5.2) 04/07/18 21:10 Sodium 139.0 mmol/l (132-148) 04/07/18 21:10 Chloride 102.0 mmol/L (98-107) 04/07/18 21:10 Glucose 88 mg/dl (75-110) 04/07/18 21:10 Lactate 1.5 mmol/L (0.7-2.1) 04/07/18 21:10 FiO2 21.0 % 04/07/18 21:10 Sodium 141 mmol/L (132-148) 04/13/18 07:42 Potassium 4.9 mmol/L (3.6-5.2) 04/13/18 07:42 Chloride 107 mmol/L (98-107) 04/13/18 07:42 Carbon Dioxide 19 mmol/L (22-30) L 04/13/18 07:42 Anion Gap 20 (10-20) 04/13/18 07:42 BUN 5 mg/dL (9-20) L 04/13/18 07:42 Creatinine 0.5 mg/dL (0.8-1.5) L 04/13/18 07:42 Est GFR ( Amer) > 60 04/13/18 07:42 Est GFR (Non-Af Amer) > 60 04/13/18 07:42 Random Glucose 93 mg/dL (75-110) 04/13/18 07:42 Calcium 9.6 mg/dl (8.6-10.4) 04/13/18 07:42 Phosphorus 4.0 mg/dL (2.5-4.5) 04/13/18 07:42 Magnesium 2.0 mg/dL (1.6-2.3) 04/13/18 07:42 Total Bilirubin 0.7 mg/dL (0.2-1.3) 04/13/18 07:42 AST 44 U/L (17-59) 04/13/18 07:42 ALT 44 U/L (21-72) 04/13/18 07:42 Alkaline Phosphatase 71 U/L (38-126) 04/13/18 07:42 Total Protein 7.9 g/dL (6.3-8.3) 04/13/18 07:42 Albumin 4.5 g/dL (3.5-5.0) 04/13/18 07:42 Globulin 3.4 gm/dL (2.2-3.9) 04/13/18 07:42 Albumin/Globulin Ratio 1.3 (1.0-2.1) 04/13/18 07:42 Venous Blood Potassium 4.0 mmol/L (3.6-5.2) 04/07/18 21:10 Urine Color Yellow (YELLOW) 04/07/18 21:20 Urine Clarity Clear (Clear) 04/07/18 21:20 Urine pH 5.0 (5.0-8.0) 04/07/18 21:20 Ur Specific [place] 1.010 (1.003-1.030) 04/07/18 21:20 Urine Protein Negative mg/dL (NEGATIVE) 04/07/18 21:20 Urine Glucose (UA) Normal mg/dL (Normal) 04/07/18 21:20 Urine Ketones Negative mg/dL (NEGATIVE) 04/07/18 21:20 Urine Blood Negative (NEGATIVE) 04/07/18 21:20 Urine Nitrate Negative (NEGATIVE) 04/07/18 21:20 Urine Bilirubin Negative (NEGATIVE) 04/07/18 21:20 Urine Urobilinogen Normal mg/dL (0.2-1.0) 04/07/18 21:20 Ur Leukocyte Esterase Neg [place]/uL (Negative) 04/07/18 21:20 Urine WBC (Auto) < 1 /hpf (0-5) 04/07/18 21:20 Urine RBC (Auto) < 1 /hpf (0-3) 04/07/18 21:20 Vancomycin Trough 8.8 ug/mL (5.0-10.0) 04/12/18 01:15 04/07/18 21:30 Blood Culture - Final Blood NO GROWTH AFTER 5 DAYS Gram Stain - Final TEST NOT PERFORMED 04/07/18 21:00 Blood Culture - Final Blood NO GROWTH AFTER 5 DAYS Gram Stain - Final TEST NOT PERFORMED 04/07/18 Unknown Gram Stain - Final Abdomen Wound Culture - Final Strep Intermedius/Milleri 04/07/18 22:00 Gram Stain - Final Incision Site Wound Culture - Final Strep Intermedius/Milleri Coagulase Neg Staphylococcus - Hospital Course Hospital Course: Patient is a 23 year old male with history of childhood asthma and right sided scrotal mass noted December 2017, who presents to the ED with complaint for noted suprapubic pus (cloudy white brownish) drainage this morning; s/p scrotal biopsy (04/02/18). Patient reported associated symptoms of subjective fever and mild chills. Patient states that he has been keeping his incision clean and dry as instructed as well as taking the antibiotics given to upon discharge on . Patient had his first scrotal biopsy on 01/05/18 with pathology result of paratesticular biopsy positive for necrotizing granulomas. Subsequently, patient was referred to ID, Dr. Fuentes for tuberculosis work-up. Patient was given script for RIPE therapy; however, patient did not fill the script because he was awaiting TB test results. As per patient, TB work-up has been negative up -to-date. In addition, patient had his second scrotal biopsy on 04/02/18, with pathology result negative acid fast mycobacteria and noted for scattered non- necrotizing granulomas. After admission, patient was initially started on vancomycin and zosyn. Wound culture grew Staph intermedius, which is likely a skin contaminate. Urology ( Dr. Bermudez) was consulted and performed incision and drainage of abdominal cellulitis site. Patient has results of positive quantiferon from prior to admission, which were shown to inpatient physicians. Throughout hospitalization , the patient denied active symptoms of TB, including cough, night sweats, weight loss. Patient's outpatient ID physician, Dr. Fuentes, was consulted and recommended RIPE for 2 months and then possible continuation of rifampin and INH for 18 months. Biopsy results/AFP from 04/02 are still pending, and patient will follow-up as outpatient. Blood cultures remained negative > 5 days. Abx were discontinued prior to discharge. Patient complained for ~3 days of diarrhea , suspect 2/2 abx. Resolved with Imodium. CXR was negative for acute disease and cavitary lesions. Upon discharge, the patient had minimal drainage at the abdominal incision site. He was shown how to do wound care, and he felt comfortable taking care of it himself at home. He denies abdominal pain. His diarrhea resolved. He had good sleep and appetite. He asserted he will follow-up at the chest clinic tomorrow morning. Discharge Exam - Head Exam Head Exam: ATRAUMATIC, NORMAL INSPECTION, NORMOCEPHALIC - Eye Exam Eye Exam: EOMI, Normal appearance - ENT Exam ENT Exam: Mucous Membranes Moist, Normal Exam - Neck Exam Neck exam: Full Rom, Normal Inspection - Respiratory Exam Respiratory Exam: Clear to PA & Lateral, NORMAL BREATHING PATTERN - Cardiovascular Exam Cardiovascular Exam: REGULAR RHYTHM, +S1, +S2 - GI/Abdominal Exam GI & Abdominal Exam: Normal Bowel Sounds, Soft Additional comments: 10 cm suprapubic incision noted, dressed with gauze and tape. Incision packed without evidence of drainage. No erythema noted. - Rectal Exam Rectal Exam: Deferred - Extremities Exam Extremities exam: full ROM, normal inspection, pedal pulses present - Back Exam Back exam: NORMAL INSPECTION. absent: tenderness - Neurological Exam Neurological exam: Alert, CN II-XII Intact, Normal Gait, Oriented x3 - Psychiatric Exam Psychiatric exam: Normal Affect, Normal Mood - Skin Skin Exam: Dry, Intact, Normal Color, Warm Discharge Plan - Follow Up Plan Condition: IMPROVED Disposition: HOME/ ROUTINE Patient education suggested?: Yes Instructions: Cellulitis (DC), Cellulitis (GEN), Acute Abdominal Pain (DC), Acute Abdominal Pain (GEN) Additional Instructions: Patient is cleared for discharge as per Dr. Clancy, Dr. Fuentes, and Dr. Bermudez. He will follow-up with the [facility] ([phone]) tomorrow morning 04/14 to fill medications and Sunday 04/15 8:30 AM to meet with the physician. Dr. Fuentes (ID) has provided the patient with paper prescriptions for rifampin, isoniazid, pyrazinamide, ethambutol, and vitamin B6. He will also establish care with the resident clinic at [facility] ) within one week of discharge. Patient is being discharged on oral vitamin B12 and folic acid. Patient is to return to the ED if symptoms recur or are worsening. This was explained to the patient who understands and agrees. Referrals: Lindsay Davidson MD [Staff Provider] -
--- NOTE | 2018-04-14 11:44 | OP ---
Copied To: Yogesh Bermudez MD Attending MD: Yogesh Bermudez MD PROCEDURE DATE: 04/07/2018 UROLOGY BEDSIDE PROCEDURE NOTE PREOPERATIVE DIAGNOSIS: Wound infection. POSTOPERATIVE DIAGNOSIS: Wound infection. PROCEDURE: Debridement of wound at the bedside, excision, opening and irrigation of wound at the bedside. ESTIMATED BLOOD LOSS: Less than 10 mL. COMPLICATIONS: No complications. The patient was given IV morphine prior to the procedure. He tolerated the procedure well. INDICATIONS: See history and physical and consultation. 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 At this time, I noticed his inguinal incision was not proper, see the separately dictated note for this, so we excised the tissue and sent it off, but now it looks like he is having some purulent drainage and in fact that is we found. So I explained this to the patient and at bedside, we gave him morphine before began. We prepped it in usual sterile fashion. We opened it with an incision set. Then we irrigated gently and the patient tolerated it well. We deliberately created a little bleeding and then irrigated the wound carefully, so that there is no further bleeding. We then put a Betadine-soaked about inch Kerlix. We went down towards the groin, put up a little bit to catch only areas. The patient tolerated without complications. See the rest of the consult for details, but my recommendations and plans are going to be close medical followup. Close wound care. Dressing changes, etc. Then further plans will follow. Yogesh Bermudez MD
--- NOTE | 2018-04-14 12:14 | CON ---
Copied To: Yogesh Bermudez MD Attending MD: Yogesh Bermudez MD DATE: 04/07/2018 REASON FOR CONSULTATION: Groin abscess. HISTORY OF PRESENT ILLNESS: A very pleasant gentleman, who seen previously with complicated history, he has basically tuberculosis of the testicle, but we did repeat biopsies to see if there is a definite microbacterium. Anyway, at that time, the original inguinal incision looked like it was healing very slowly, so I reprepped the skin. At that time, I removed some of the tissue and I sent it "freshened up the edges," but now it looks like it is draining purulent. So I asked the patient, the patient is in the office for routine check today without major complaints, but when I examined him and when I saw this and I asked him to come here to the emergency room and now he is in the emergency room to see plan as below, he is going to be admitted and we are going to drain the abscess. PAST MEDICAL AND SURGICAL HISTORY: No other changes. REVIEW OF SYSTEMS: It looks to me like blood test criteria. It is very difficult to confirm the tuberculosis by blood test criteria positive PPD, but a negative chest x-ray and issues whether or not to treat this young man with six months of INH and Rifampin, etc. After discussing all the options, he is here now today, because we had excised more tissue to get tissue pathology. But now he came to the office for routine check and his groin does not look proper, that looks like there is some purulent drainage. It is very superficial. There is no real crepitus. The skin itself looks grossly intact albeit there is no real red markings around the skin. It really seems like a very subcu cellulitis. I actually obtained a second opinion just to have somebody else look with me. We brought him back here at the hospital. We are going to treat him at the bedside with local and some sedation, just some morphine. See below plans. Past medical and surgical all listed in chart and really essentially negative. He lives socially with his , [place]. PHYSICAL EXAMINATION: GENERAL: Well-nourished male, in no apparent distress. He is currently resting comfortably. VITAL SIGNS: Within normal limits and included in the chart. At this point, under sterile technique, we drained basically about 30 to 40 mL of purulent material with really no major odor. We sent this to the lab. Labs are pending at this point. DIAGNOSIS: An abscess in the groin area. We drained it successfully. We are going to leave it open and let it heal by secondary intention. We are going to provide wound care. We are going to get him wound care nurse, wound care consultation, Infectious Disease is on the case. We also did discuss the overall picture, which is whether or not to treat with medications and whatever is the protocol will decide. Still at this point I went over with the patient the cultures, but the cultures were all negative today and the tissue is very difficult to confirm. We are awaiting to see what the Infectious Disease doctors recommend. Then further plans will follow. Yogesh Bermudez MD
== END 2018-04-13 17:00 | disposition home or self-care (01) | DRG 899 ==
LOC: EDBD 20:14 → C.ER 20:14 → C.9E 22:50 → C.3T 04-08 00:31
PROVIDERS: ADMIT Internal Medicine; ATTEND Internal Medicine
PROC: 0W9F0ZX Drainage of Abdominal Wall, Open Approach, Diagnostic (ICD-10-PCS; principal; 2018-04-07)
DX: T81.4XXA Infection following a procedure, initial encounter (principal); L03.311 Cellulitis of abdominal wall; N50.89 Other specified disorders of the male genital organs; F17.210 Nicotine dependence, cigarettes, uncomplicated; Y84.8 Other medical procedures as the cause of abnormal reaction of the patient, or of later complication, without mention of misadventure at the time of the procedure; N45.2 Orchitis; R19.7 Diarrhea, unspecified; B95.4 Other streptococcus as the cause of diseases classified elsewhere; A15.9 Respiratory tuberculosis unspecified

== ENCOUNTER 2018-12-03 14:20 | Outpatient (CLI) | payer SELFPAY | END 2018-12-03 14:21 | disposition home or self-care (01) | LOC: C.CTH 14:21 ==